=== PATIENT | male | born 1965 | race Caucasian/White ===

== ENCOUNTER 2019-07-08 09:30 | Outpatient (RCR) | payer OTHER, SELFPAY | END 2019-07-08 23:59 | disposition home or self-care (01) | LOC: ANHAUDIO 09:30 | PROVIDERS: PCP Family Medicine | DX: Z46.1 Encounter for fitting and adjustment of hearing aid (principal) | CPT/HCPCS: 99199 ==

== ENCOUNTER 2019-10-02 10:51 | Outpatient (RCR) | payer OTHER, SELFPAY | END 2019-10-02 23:59 | disposition home or self-care (01) | LOC: ANHAUDIO 10:51 | PROVIDERS: PCP Family Medicine; Visit Provider Family Medicine | DX: Z46.1 Encounter for fitting and adjustment of hearing aid (principal) | CPT/HCPCS: 99199 ==

== ENCOUNTER 2020-09-12 08:00 | Outpatient (RCR) | payer OTHER, SELFPAY | END 2020-09-12 23:59 | disposition home or self-care (01) | LOC: ANHAUDIO 08:00 | PROVIDERS: PCP Family Medicine; Visit Provider Family Medicine | DX: Z46.1 Encounter for fitting and adjustment of hearing aid (principal) | CPT/HCPCS: 92592; 99199; V5264 ==

== ENCOUNTER 2020-09-15 17:37 | Emergency (ER) | payer OTHER, SELFPAY ==
--- NOTE | ~2020-09-15 | XR_ITS ---
EXAMINATION: XR foot RT min 3V EXAM DATE: 09/15/2020 18:22 INDICATION: Right foot pain, plantar surface 2nd digit. TECHNIQUE: Right foot dorsoplantar, lateral and oblique projections obtained and reviewed. Compariso n is made to prior examination from 07/28/2013. FINDINGS: Right metatarsal bones unremarkable. There is mild right 1st metatarsophalangeal joint pr imary osteoarthritis. Small inferior calcaneal spur. No periosteal reaction or band of sclerosis to s uggest subacute stress fracture. There are no acute fractures or dislocations identified. There is n o subcutaneous gas. The soft tissue is unremarkable. There are no radiopaque foreign bodies. IMPRESSION: 1. XR foot RT min 3V exam without acute osseous findings. 2. Mild right 1st MTP osteoarthritis. Reviewed, dictated and finalized at location A.
--- NOTE | ~2020-09-15 | XR_ITS ---
EXAMINATION: XR foot LT min 3V EXAM DATE: 09/15/2020 18:22 INDICATION: Left foot pain, plantar surface 2nd digit. TECHNIQUE: Left foot dorsoplantar, lateral and oblique projections obtained and reviewed. Compari son is made to prior examination from 01/17/2016. FINDINGS: No periosteal reaction or band of sclerosis to suggest subacute stress fracture. There are no acute left foot fractures or dislocations identified. There is no subcutaneous gas. The soft tis dana is unremarkable. There are no radiopaque foreign bodies. IMPRESSION: 1. Unremarkable XR foot LT min 3V exam. Reviewed, dictated and finalized at location A.
[2020-09-15 17:50] VITALS: BP 152/96; PULSE 99; RESP 16; TEMP 36.6; O2SAT 97
--- NOTE | 2020-09-15 18:00 | ED.EXTPRO ---
HPI - Extremity Problem General Chief complaint: Extremity Problem,Nontraumatic Stated complaint: bilateral foot pain Time Seen by Provider: 09/15/20 17:40 Source: patient Mode of arrival: ambulatory Limitations: no limitations History of Present Illness HPI Narrative: This is a 55-year-old male that presents to the emergency department for ongoing foot pain over the last month. Reports pain initially started in the right foot, and is now also on the left foot. It is on the plantar surface of the feet around the area of the second and third metatarsals. Pain is worse with palpation of the area and weightbearing. The pain is sharp in nature. He has been alternating Tylenol and ibuprofen for pain. No known injury or trauma. Denies decreased range of motion or numbness. Related Data Home Medications Medication Instructions Recorded Confirmed duloxetine mg PO 09/15/20 temazepam mg 09/15/20 Allergies Allergy/AdvReac Type Severity Reaction Status Date / Time codeine Allergy Unknown Gastrointestinal Verified 09/15/20 18:05 Upset Review of Systems Review of Systems: Narrative: CONSTITUTIONAL: Denies fever MUSCULOSKELETAL: Reports myalgia. NEUROLOGIC: Denies numbness All systems reviewed & are unremarkable except as noted in HPI and below PMFSH Family History Family History (Updated 10/22/13 @ 07:13 by DOCTOR UNKNOWN) Father Family history of congestive heart failure Hypertension Mother Carcinoma of colon Other Family history of colonic diverticulitis Social History Social History (Updated 09/15/20 @ 18:04 by Saba Garcia PA-C) Smoking status: Former smoker Alcohol intake: never Substance use: current Substance use type: marijuana Gender identity (if verbalized by the patient): Male Exam Narrative: Exam Narrative: GENERAL: Well-appearing, well-nourished, and in no acute distress. HEAD: Normocephalic, atraumatic. EYES: EOMI. EXTREMITIES: Normal range of motion. No edema, erythema or warmth. Normal DP pulses. Normal sensation. Tender to palpation of the plantar surface of the foot over the 2nd and 3rd metatarsals bilaterally SKIN: Warm, dry, no rash. NEURO: No focal deficits. Alert and oriented x3. PSYCH: Normal mood and affect Course Vital Signs Vital signs: Vital Signs Temperature 98 F 09/15/20 17:50 Pulse Rate 99 09/15/20 17:50 Respiratory Rate 16 09/15/20 17:50 Blood Pressure 152/96 H 09/15/20 17:50 Pulse Oximetry 97 09/15/20 17:50 Temperature 98 F 09/15/20 17:50 Pulse Rate 99 09/15/20 17:50 Respiratory Rate 16 09/15/20 17:50 Blood Pressure 152/96 H 09/15/20 17:50 Pulse Oximetry 97 09/15/20 17:50 MDM - Extremity (Nontraumatic) MDM Narrative Medical decision making narrative: Patient presents the emergency department for bilateral foot pain. On the plantar surface of the feet around the area of the second and third metatarsals. No recent injuries or trauma. Patient is neurovascularly intact. Does report he started a new job where he has to climb up and down a ladder a lot. Bilateral foot x-rays are without acute osseous abnormalities. Patient updated on case findings. Instructed to buy some inserts that will pad the metatarsal areas of his feet. He is to follow-up with the gunner's mate g. He was given warnings to return to the ER Imaging Data Radiologist's impression: ITS Impressions Foot X-Ray 09/15/20 18:32 IMPRESSION: 1. Unremarkable XR foot LT min 3V exam. Foot X-Ray 09/15/20 18:35 IMPRESSION: 1. XR foot RT min 3V exam without acute osseous findings. 2. Mild right 1st MTP osteoarthritis. Critical Care Time Critical Care Time Critical Care Time: No Discharge Plan Discharge Clinical Impression: Metatarsalgia of both feet Patient Disposition: Home, Self-Care Condition: Stable Instructions: Metatarsalgia (DC) Additional Instructions: Return to the emergency department if y
[2020-09-15] MEDS: KETOROLAC (*BKC) 60 MG/2 ML VIAL IM (18:08)
== END 2020-09-15 19:10 | disposition home or self-care (01) ==
PROVIDERS: Emergency Provider Emergency Medicine; PCP Family Medicine
DX: M79.672 Pain in left foot (principal); M79.671 Pain in right foot; Z87.891 Personal history of nicotine dependence; M19.071 Primary osteoarthritis, right ankle and foot
CPT/HCPCS: 73630; 96372; 99284; J1885

== ENCOUNTER 2020-11-07 16:43 | Outpatient (CLI) | payer OTHER, SELFPAY ==
--- NOTE | ~2020-11-07 | XR_ITS ---
XR hand RT min 3V DATE: 11/07/2020 17:01 INDICATION: Right hand pain TECHNIQUE: 3 views COMPARISON: None FINDINGS: There is periarticular osteophyte is at the minimally to the first carpometacarpal joint, a lso interphalangeal joints. No fracture or dislocation, periosteal reaction or bone destruction. IMPRESSION: Polyarticular osteoarthritis, involving particularly the first carpometacarpal joint Reviewed, dictated and finalized at location A. IMPRESSION: Polyarticular osteoarthritis, involving particularly the first carp ometacarpal joint
== END 2020-11-07 16:44 | disposition home or self-care (01) ==
LOC: ANHIMG 16:47
PROVIDERS: PCP Family Medicine; Visit Provider Physician Assistant Medical
DX: M19.041 Primary osteoarthritis, right hand (principal)
CPT/HCPCS: 73130

== ENCOUNTER 2021-04-04 15:17 | Outpatient (CLI) | payer OTHER, SELFPAY ==
--- NOTE | ~2021-04-04 | XR_ITS ---
XR shoulder RT min 2V DATE: 04/04/2021 15:45 INDICATION: Right shoulder injury, pain TECHNIQUE: 4 views COMPARISON: None FINDINGS: No fracture or dislocation, periosteal reaction or bone destruction or abnormal soft tissue calcification. IMPRESSION: No significant abnormality Reviewed, dictated and finalized at location A. APPLICATIONS ARCHITECT IMPRESSION: No significant abnormality
--- NOTE | ~2021-04-04 | XR_ITS ---
XR cervical spine min 6V DATE: 04/04/2021 15:45 INDICATION: Neck pain TECHNIQUE: AP, open-mouth, lateral and bilateral oblique views COMPARISON: None FINDINGS: The cervical vertebrae are normally aligned. C1 and C2 are normally aligned and the odontoi d process is intact. No fracture or dislocation or locked facet or prevertebral soft tissue swelling. There is mild anterior spurring in the mid and lower cervical spine. Cervical interspaces are relativ carolyn well preserved. No significant bony encroachment upon the neural foramina. IMPRESSION: Mild degenerative change Reviewed, dictated and finalized at location A. RVISOR PHOTOSTAT IMPRESSION: Mild degenerative change
== END 2021-04-04 15:18 | disposition home or self-care (01) ==
PROVIDERS: PCP Family Medicine; Visit Provider Family Medicine
DX: M54.2 Cervicalgia (principal); S49.91XA Unspecified injury of right shoulder and upper arm, initial encounter; X58.XXXA Exposure to other specified factors, initial encounter
CPT/HCPCS: 72052; 73030

== ENCOUNTER 2021-05-12 07:55 | Outpatient (CLI) | payer OTHER, SELFPAY ==
--- NOTE | 2021-05-12 08:00 | ECG_ITS ---
Measurements Intervals [place] Rate: 84 P: 58 WI: 181 QRS: -26 QRSD: 107 T: 68 QT: 352 QTc: 416 Interpretive Statements SINUS RHYTHM WITH SINUS ARRHYTHMIA MOTION ARTIFACT MAKES INTERPRETATION DIFFICULT LEFT AXIS DEVIATION [QRS AXIS < -20] NONSPECIFIC T-WAVE ABNORMALITY NO PREVIOUS ECG AVAILABLE FOR COMPARISON Electronically Signed On 05-12-2021 16:06:07 CDT by Mariano Pineda M.D.
== END 2021-05-12 07:56 | disposition home or self-care (01) ==
LOC: ANHSURGERY 08:00
PROVIDERS: PCP Family Medicine; Visit Provider Plastic Surgery
DX: Z87.891 Personal history of nicotine dependence (principal)
CPT/HCPCS: 93005

== ENCOUNTER 2021-05-18 01:20 | Day surgery (SDC) | payer OTHER, SELFPAY ==
[2021-05-10 11:14] VITALS: BMI 34.0
--- NOTE | 2021-05-10 11:26 | PC.NURSE ---
Report to the Outpatient Waiting Room, entrance under the green pavilion located off [facility], at time 7:30 on date 05/18/21. OR Time: 9:30. - You and your visitor will be asked a series of questions to screen for COVID 19 for your protection. - A mask is required within the hospital. One visitor will be allowed to accompany the patient into the hospital. Patients visitor will be instructed to remain with patient at all times or leave the building. We will allow the visitor to come back to the postoperative area when patient is ready. Preoperative COVID Testing Requirements: No COVID Test needed if: (proof is required; if not received patient will have Rapid Test prior to entry) - Patient has received COVID Vaccine at least 14 days prior to procedure date or - Patient has positive COVID test result within last 90 days of surgery date. COVID Test needed if above criteria is not met Patients may have clear liquids (water, carbonated beverages, clear teas, apple juice) until 3 hours prior to surgery (6:30) with a maximum of 20 ounces. - No food from midnight until time of surgery Take the following medications with a SIP of water the morning of surgery: CYCLOBENZAPRINE, GABAPENTIN Medications to discontinue per physician: N/A Date to take last dose: N/A Please no make-up, nail british, hairspray, perfume, deodorant, or body powder the day of surgery. No jewelry (including any body piercings) or valuables the day of surgery, leave them at home. Please take a shower or bath the night before, or the morning of, surgery with an antibacterial soap. Wear comfortable, loose fitting clothing. - Jewelry must be removed prior to entering the operating room. Rings and piercings that are not removed may be cut off. - The hospital will not accept responsibility for valuables. - Please leave all valuables, including medications, at home the day of surgery. If you are going home after surgery, a licensed mobile lounge driver must drive you home. - NO public transportation without another adult. - We recommend that an adult stay with you for 24 hours following discharge. - We also recommend that you do not drive, make important decision, drink alcoholic beverages, or take any drugs that were not prescribed by your health care provider for at least 24 hours after your discharge time. Follow any additional instructions given to you from your surgeon. Telephone instructions given to LUPILLO TORRES and asked if any additional questions and then verbalized understanding. Patient advised to call surgeon office or pre surgery nurse liaison [phone] if any additional questions.
[2021-05-18] VITALS (8 sets, daily range): BP systolic 150–176; BP diastolic 85–98; PULSE 48–61; RESP 12–16; TEMP 36–36.5; O2SAT 98–100
--- NOTE | ~2021-05-18 | XR_ITS ---
EXAMINATION: XR surgery orthopedic DATE: 05/18/2021 11:26 INDICATION: Right thumb arthroplasty TECHNIQUE: 3 fluoroscopic images of the right carpus were obtained during procedure performed by Dr. Ramos. Radiologist was not present for the imaging or procedure. The amount of fluoroscopy time used during this procedure was 0.1 minutes. COMPARISON: 11/07/2020 FINDINGS: Interval resection of the trapezium with expected postoperative gas at the resection bed. On the init ial image the thumb is slightly distracted and the tip of a metallic pin projects over the radial bas e of the second metatarsal likely marking a fixation site. On the final image the retraction of the f irst metacarpal has been released with the base of the first metacarpal settling partially into the r esection bed. IMPRESSION: 1. Expected appearance during first carpal metacarpal suspension arthroplasty with resection of the t rapezium. Reviewed, dictated and finalized at location A. IMPRESSION: 1. Expected appearance during first carpal metacarpal suspension arthroplasty w ith resection of the trapezium.
--- NOTE | 2021-05-18 06:19 | P.PNAN_ITS ---
Anes - Initial Pre Proc Eval Procedure: Operation Date: 05/18/21 09:30 Proposed Procedures p Right Trapezium Resection Arthroplasty with Arthrex Internal Brace - Terry Ramos MD Date/Time: 05/18/21 06:19 Surgeon: Terry Ramos MD Pre Op Diagnosis: right 1st carpometacarpal joint OA Patient Data Age: 55 Gender: M Height: 1.75 m Weight: 104.33 kg Allergies Allergy/AdvReac Type Severity Reaction Status Date / Time codeine Allergy Mild Gastrointestinal Verified 05/18/21 07:53 Upset Home Medications Medication Instructions Recorded Confirmed Type temazepam 30 mg capsule 30 mg PO .hs #30 cap 03/23/21 05/18/21 Rx ibuprofen 800 mg tablet 800 mg PO TID #60 tablet 04/20/21 05/18/21 Rx duloxetine 60 mg PO HS 05/10/21 05/18/21 History gabapentin 100 mg capsule 100 mg PO BID #60 cap 05/14/21 05/18/21 Rx meloxicam 15 mg PO DAILY 05/18/21 05/18/21 History Patient hx anesthesia problems: none Family hx anesthesia problems: none Results Review: All pre-operative results and documents have been reviewed as part of the pre-operative evaluation. [facility]LY [facility] Past Medical History Medical History (Updated 05/18/21 @ 06:19 by Clyde Cary DO) BMI 31.0-31.9,adult BMI 32.0-32.9,adult Diverticulosis IBS (irritable bowel syndrome) Neck pain Family History Family History Father Family history of congestive heart failure Hypertension Mother Carcinoma of colon Father CHF (congestive heart failure) Cancer of jaw Mother Cancer Sibling Brain aneurysm Sibling , stomach cancer No problems noted. 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 Informed Consent: The patient's anesthetic plan and its attendant risks and benefits were discussed with the patient/family/POA. Questions were solicited and answers provided to the satisfaction of the patient/family/POA.
[2021-05-18] MEDS: ACETAMINOPHEN 500 MG TABLET 1000 MG PO (08:03)
[2021-05-18] MEDS: LACTATED RINGERS 1,000 ML 30 ML IV CONT ×2 (08:10→10:51)
[2021-05-18] MEDS: KETOROLAC 15 MG/ML VIAL (*BKC) IV PUSH (08:13)
--- NOTE | 2021-05-18 09:05 | WPDHPUPDATE1 ---
History and Physical Update Update Date/Time: 05/18/21 09:05 History and Physical has been reviewed, including an updated exam of the patient. There are NO changes in the patient's condition. Risks, benefits, and alternatives have been discussed and questions answered. Patient agrees to proceed with procedure.
[2021-05-18] MEDS: ceFAZolin 2 GM/D5W 50 ML 2 GM/50 ML BAG IVPB (09:11)
[2021-05-18] MEDS: BUPIVACAINE HCL 0.5% PF 30 ML VIAL INFILTRATE (10:31)
--- NOTE | 2021-05-18 11:30 | SUR.PHASEI ---
DR MOCTEZUMA AWARE OF BP 151/100 & 176/95, HR 51- NO ORDERS TO TREAT AT THIS TIME. INSTRUCT PT TO FOLLOW WITH PCP.
--- NOTE | 2021-05-18 15:32 | W.PM.PROC2 ---
Procedure Note - Detailed Date of Procedure 05/18/21 Pre-op Diagnosis right 1st carpometacarpal joint OA Post-op Diagnosis Same Procedure Performed Right trapezium resection arthroplasty with Arthrex internal brace Surgeon Terry Ramos MD Customer Resolution Specialist [place] Anesthesia General Description of Procedure The right radial wrist area was marked on the patient as he waited in the holding area. Was taken to the operating room and placed supine on the operating table. The right upper extremity was prepped over the hand table. A a time-out was held confirmed. The site was marked for the incision to include the existing scar. This area was infiltrated with 1% lidocaine with epinephrine. The extremity was exsanguinated and the tourniquet inflated 250 mmHg. The incision was made as marked on the radial aspect of the thumb centered on the basal joint. Dissection was carried through the subcutaneous tissue. A 3 mm cutaneous nerve was identified and kept out of harm's way. The interspace between the EPB and the APL was incised and dissected subperiosteally to expose the base of the metacarpal and trapezium. The trapezium was dissected around its periphery with a knife or Kolby lynnette and the trapezium was removed with a rongeur and or a McGlamry elevator. The superficial branch of the radial artery was identified and preserved. Images were made to confirm the removal of the entire trapezium. The radial facet at the base of the 2nd metacarpal was identified and a C-wire past into that. Site was imaged and the drill was placed over the guidewire and the drill hole made. The wire was removed and the Arthrex SwiveLock was placed over SutureTape to seat the 2nd metacarpal end of the suspension plasty. The radial base of the 1st metacarpal was freed of ligamentous tissue and the similar anchor was placed there to complete the suspension plasty. The construct was imaged with the thumb distracted and depressed to the limits of the suture tape. Capsular material that could be reposition was repaired with 3-0 Vicryl suture. The tourniquet was released and the skin was closed with the running intradermal 4-0 Monocryl suture. 8 milliliter of 0.5% plain Marcaine were injected appropriately near the wound area. A soft bandage and thumb spica Ortho Glass splint were applied. the patient was discharged from the operating room in stable condition. He has a prescription for hydrocodone 5/325 7. Was prescribed he had been given 2 g Ancef preop along with 1000 mg of Tylenol and 15 mg of IV Toradol. Tourniquet Time 60 Drains No Packing No Pathology None sent Complications No immediate complications Condition Stable Disposition PACU
== END 2021-05-18 12:41 | disposition home or self-care (01) ==
PROVIDERS: PCP Family Medicine; Visit Provider Plastic Surgery
PROC: (CPT 25447; principal; 2021-05-18 09:30)
DX: M18.11 Unilateral primary osteoarthritis of first carpometacarpal joint, right hand (principal); Z87.891 Personal history of nicotine dependence; F12.90 Cannabis use, unspecified, uncomplicated; E66.9 Obesity, unspecified; Z68.32 Body mass index [BMI] 32.0-32.9, adult
CPT/HCPCS: 25447; A9270; C1713; J0690; J1100; J1885; J2405; J2704; J3010; J7120

== ENCOUNTER 2021-06-30 10:00 | Outpatient (RCR) | payer OTHER, SELFPAY ==
--- NOTE | 2021-05-31 09:28 | OTOPEVAL ---
OCCUPATIONAL THERAPY EVALUATION REPORT 05/31/21 Ming is a 56 year-old, left handed male who is 2 weeks s/p right thumb CMC arthroplasty with Arthrex Internal Brace. Today a well fitting, removable, thermoplastic long thumb spica brace was fabricated to allow for regular removal for ROM and for continued protection until week 4 post op. He was also issued active ROM HEP. He demonstrates excellent understanding of all materials. Continued skilled OT indicated for HEP progression, modalities, manual therapy, and splint weaning schedule to facilitate optimal functional use of his right hand. Thank you for referring Ming Bowlesmarifer Velazco. to [facility].? The patient is scheduled to be seen for therapy? 1x/week for4 weeks. Please review, sign, date and return this plan of care HARRIETT. I agree with and certify that the following plan of care is medically necessary. Referring Physician Date Referring Provider: Terry Ramos MD *OT Outpatient Evaluation Start: 05/31/21 08:18 Outpatient Past Medical History Past Medical History Source of Past Medical History Recalled from Previous Visit, Confirmed with Patient/Family Neurological History Hx Neurological Disorders No Significant History Cardiovascular History Hx Cardiac Disorders No Significant History Respiratory History Hx Respiratory Disorders No Significant History Gastrointestinal History Hx Diverticulosis Yes Hx Irritable Bowel Yes Genitourinary History Hx Genitourinary Disorders No Significant History Musculoskeletal History Hx Arthritis Yes Hx Orthopedic Surgery Yes: LT HAND TRIGGER FINGER RELEASE, CARPAL AND CUBITAL TUNNEL RELEASE, LT RCR Hx Other Musculoskeletal Disorders Yes: GANGLION CYST REMOVED Hematological History Hx Hematological Disorders No Significant History Endocrine History Hx Endocrine Disorders No Significant History HEENT History Hx Sinus Problems Yes Hx Deviated Septum Yes: NOSE BROKEN CHILD Hx Other HEENT Disorders Yes: BILAT LAZY EYE Integumentary History Hx Skin Disorders No Significant History Reproductive History Hx Reproductive Disorders No Significant History Psychosocial History Hx Anxiety Yes: SITUATIONAL Pain History History of Any Previous or Ongoing No Significant History Instance of Pain Anesthesia History Hx Anesthesia Reactions No Significant History Evaluation Information Problem Diagnosis s/p right trapezium resection with Internal Brace Onset 05/18/21 Cause 1st CMC OA Subjective Information Patient reports he is off work Query Text:As Reported By Patient/ x6 weeks. States he has been Family doing everything one handed since surgery. Prior Level of Function Activity Level (Last 3 Months) Occupation
--- NOTE | 2021-06-09 10:59 | PCOTNOTE ---
Patient did not show up for scheduled appointment this date. Called patient who stated he thought his appointment was at 1:30 today.
--- NOTE | 2021-06-30 10:46 | OTOPEVAL ---
OCCUPATIONAL THERAPY RE-EVALUATION REPORT AND DISCHARGE SUMMARY 06/30/21 Patient presents today, 6 weeks following right thumb CMC arthroplasty. He has been excellent with HEP compliance and has progressed very well. Today he presents with no functional limitations, just reports of some residual soreness at times. Measurements show ROM has returned to normal limits, with the exception of the MCP joint of the thumb for which he is continuing with his HEP for that. He was progressed to strengthening for the wrist, mud analysis supervisor, and pinch and demonstrates excellent understanding of all the exercises. No further skilled OT indicated at this time. Thank you for referring Ming Nieves Sr. to [facility]. Please review, sign, date and return this D/C Note HARRIETT. I agree with and certify that the following plan of care is medically necessary. Referring Physician Date Referring Provider: Terry Ramos MD Re-Evaluation Information Problem Diagnosis s/p right trapezium resection with Internal Brace Onset 05/18/21 Cause 1st CMC OA Subjective Information Patient reports he has no Query Text:As Reported By Patient/ functional limitations at this Family time. He reports some residual, intermittent soreness at the surgical site. Pain Assessment Timing of Pain Assessment Timing of Pain Assessment Assessment Pain Scale Pain Scale Used Numeric (1 - 10) Self Report Pain Assessment Right Hand(s) Reported Pain Level 0 Lowest Pain Intensity 0 Greatest Pain Intensity 4 Pain Score Pain Score 0: Self Report Upper Extremity Range of Motion Elbow/Forearm Range of Motion Right Forearm Supination - Active 90 Forearm Pronation - Active 90 Elbow/Forearm Range of Motion Comments Supination improved from 80* Pronation improved from 85* Wrist Range of Motion Right Wrist Flexion - Active 75 Wrist Extension - Active 65 Wrist Radial Deviation - Active 25 Wrist Ulnar Deviation - Active 35 Wrist Range of Motion Comments Flexion improved from 70* Extension improved from 50* RD improved from 15* UD improved from 25* Finger Range of Motion Right Reason Not Measured WNL/Right Thumb Range of Motion Right Thumb MCP Flexion - Active 30 Thumb MCP Flexion - Passive 45 Thumb IP Flexion - Active 80 Thumb CMC Radial Abduction - Active 60 Thumb CMC Palmar Abduction - Active 60 Opposition to 5th Digit Base 0 cm. gap Thumb Range of Motion Comments MCP flex improved from 15* IP flex improved from 55* CMC radial abd improved from 45* CMC palmar abd improved from 55*
== END 2021-07-03 09:08 | disposition home or self-care (01) ==
LOC: ANHOT 10:00
PROVIDERS: PCP Family Medicine; Visit Provider Plastic Surgery
DX: Z48.89 Encounter for other specified surgical aftercare (principal)
CPT/HCPCS: 97110; 97165; L3806

== ENCOUNTER 2021-06-30 13:58 | Outpatient (RCR) | payer OTHER, SELFPAY | END 2021-06-30 23:59 | disposition home or self-care (01) | LOC: ANHAUDIO 13:58 | PROVIDERS: PCP Family Medicine; Referring Provider Physician Assistant Medical; Visit Provider Physician Assistant Medical | DX: Z46.1 Encounter for fitting and adjustment of hearing aid (principal); H91.90 Unspecified hearing loss, unspecified ear; Z71.89 Other specified counseling | CPT/HCPCS: 99199 ==

== ENCOUNTER 2021-07-10 16:19 | Outpatient (CLI) | payer OTHER, SELFPAY ==
[2021-07-10 16:42] LABS: Anion Gap 4 mmol/L (8-16); Blood Urea Nitrogen 21 mg/dL (9-20); Calcium 8.5 mg/dL (8.4-10.2); Carbon Dioxide 25 mmol/L (22-30); Chloride 109 mmol/L (98-107); Creatine Kinase 106 U/L (55-170); Estimated Glomerular Filt Rate > 60; Glucose 97 mg/dL (65-110); Potassium 4.1 mmol/L (3.4-5.0); Sodium 138 mmol/L (137-145)
== END 2021-07-10 16:20 | disposition home or self-care (01) ==
LOC: ANHLAB 16:20
PROVIDERS: PCP Family Medicine; Visit Provider Nurse Practitioner Family
DX: T67.01XA Heatstroke and sunstroke, initial encounter (principal)
CPT/HCPCS: 36415; 80048; 82550

== ENCOUNTER 2022-04-20 14:27 | Emergency (ER) | payer OTHER, SELFPAY ==
--- NOTE | ~2022-04-20 | XR_ITS ---
EXAMINATION: XR chest 2V 04/20/2022 15:11 INDICATION: Chest pain PROCEDURE: 2 view chest COMPARISON: 08/24/2018 FINDINGS: The lungs are clear. Shallow inspiration with crowding of the pulmonary vessels. The cardio mediastinal silhouette is enlarged. There are no pleural effusions. There is no pneumothorax suspect ed. IMPRESSION: 1: NO ACUTE CARDIOPULMONARY DISEASE. Reviewed, dictated and finalized at location B. ING TECHNICIAN
--- NOTE | 2022-04-20 14:28 | ECG_ITS ---
Measurements Intervals [place] Rate: 65 P: 32 WI: 178 QRS: -30 QRSD: 106 T: 56 QT: 433 QTc: 452 Interpretive Statements SINUS RHYTHM LEFT AXIS DEVIATION [QRS AXIS < -20] NONSPECIFIC T-WAVE ABNORMALITY COMPARED TO ECG 05/12/2021 08:12:41 NO SIGNIFICANT CHANGES Electronically Signed On 04-20-2022 15:42:14 CABIN EQUIPMENT SUPERVISOR by Mariano Pineda M.D.
[2022-04-20 14:32] VITALS: BP 156/85; PULSE 72; RESP 16; TEMP 36.6; O2SAT 100
[2022-04-20 14:48] LABS: Basophils Absolute Auto 0.1 K/mm3 (0.0-0.1); Eosinophils Absolute Auto 0.2 K/mm3 (0-0.3); Eosinophils Percent Auto 2.1 % (0-4.4); Hematocrit 45.8 % (42.0-52.0); Hemoglobin 15.8 g/dL (14.0-18.0); Immature Granulocyte Absolute 0.04 K/mm3 (0.00-0.031); Immature Granulocyte Percent A 0.5 % (0-0.5); Lymphocytes Absolute Auto 1.35 K/mm3 (0.9-3.2); Lymphocytes Percent Auto 15.6 % (18.3-44.2); Mean Corpuscular HGB Conc 34.5 g/dl (32-36); Mean Corpuscular Hemoglobin 31.5 pg (26-34); Mean Corpuscular Volume 91.4 fl (80-100); Mean Platelet Volume 8.8 fl (7.4-10.4); Monocytes Absolute Auto 0.7 K/mm3 (0.1-0.6); Monocytes Percent Auto 7.5 % (2.6-8.5); Neutrophils Absolute Auto 6.3 K/mm3 (1.3-6.7); Neutrophils Percent Auto 73.3 % (45.5-73.1); Platelet Count Result 276 k/mm3 (150-375); Red Blood Count 5.01 M/mm3 (4.6-6.20); Red Cell Distribution Width 13.1 % (11.5-14.5); White Blood Count 8.6 K/mm3 (4.5-10.0)
[2022-04-20 15:00] LABS: Alanine Aminotransferase 22 U/L (6-50); Albumin Level 4.7 g/dL (3.5-5.1); Alkaline Phosphatase 73 U/L (38-126); Anion Gap 5 mmol/L (8-16); Aspartate Amino Transferase 22 U/L (17-59); Bilirubin,Total 0.8 mg/dL (0.2-1.3); Blood Urea Nitrogen 22 mg/dL (9-20); Calcium 8.7 mg/dL (8.4-10.2); Carbon Dioxide 27 mmol/L (22-30); Chloride 104 mmol/L (98-107); Estimated CRCL calculation 103 ml/min; Estimated Glomerular Filt Rate > 60; Glucose 90 mg/dL (65-110); INR 1.1; Lipase 101 U/L (23-300); Potassium 3.8 mmol/L (3.4-5.0); Prothrombin Time 13.3 Seconds (11.1-14.7); Sodium 136 mmol/L (137-145)
[2022-04-20 15:01] LABS: Partial Thromboplastin Time 26.2 SECONDS (22.3-36.8)
[2022-04-20 15:11] LABS: Troponin I < 0.012 ng/mL (0.000-0.034)
== END 2022-04-20 17:43 | disposition left against medical advice (07) ==
LOC: ANHED 17:52
PROVIDERS: Emergency Provider Emergency Medicine; PCP Family Medicine
DX: R07.89 Other chest pain (principal)
CPT/HCPCS: 36415; 71046; 80053; 83690; 84484; 85025; 85610; 85730; 93005; 99199

== ENCOUNTER 2022-05-10 07:56 | Outpatient (CLI) | payer OTHER, SELFPAY ==
--- NOTE | 2022-05-10 08:11 | EST_ITS ---
Patient Info Name: Ming Nieves Age: 56 years : 1965 Gender: Male Ht: 69 in Wt: 225 lbs BSA: 2.26 m2 HR: 57 bpm BP: 125 / 91 mmHg Heart Rhythm: Sinus Rhythm Exam Date: 05/10/2022 8:38 AM Exam Location: [facility] Stress Patient Status: Outpatient Admit Date: 05/10/2022 Staff Ordering Physician: Sylwia Granados Attending Provider: Sylwia Granados Exercise Technologist: Kristen Day RDCS Exercise Physician: Yohan Rodriguez DO Exam Type: CA stress test treadmill Study Info Indications R07.9 - Chest pain, unspecified - HYPERTENSION A treadmill exercise stress test was performed. Summary 1. A treadmill exercise stress test was performed. 2. 1. Negative Chung exercise stress test for ischemic ST changes by ECG criteria. 3. 2. Reduced functional capacity, achieving 7 METs of workload. 4. 3. Baseline hypertension. 5. 4. Appropriate HR response to exercise. 6. 5. Appropriate HR recovery at 1 minute post exercise. 7. 6. No imaging with stress testing. 8. 7. Patient informed of the above results. Protocol: Chung Rest HR: 57 bpm Peak HR: 149 bpm Rest Sys BP: 125 mmHg Peak Sys BP: 210 mmHg Max Pred HR: 162 bpm % Max Pred HR: 92 % Target HR: 138 bpm Max RPP: 31,290 bpm*mmHg Termination Reason: Reached target heart rate or workload Cardiac Symptoms: Shortness of breath Max ST Seg Deviation: 1.20 mm Total Time: 5 min : 0 sec Rest Dewey BP: 91 mmHg Peak Dewey BP: 90 mmHg Total METS: 7.1 Resting ECG Sinus rhythm, IRBBB. Stress ECG No ST changes. Arrhythmias None. Report Signatures
== END 2022-05-10 07:57 | disposition home or self-care (01) ==
PROVIDERS: PCP Family Medicine; Visit Provider Nurse Practitioner Family
DX: R07.9 Chest pain, unspecified (principal); I10 Essential (primary) hypertension
CPT/HCPCS: 93017

== ENCOUNTER 2022-07-30 09:03 | Outpatient (CLI) | payer OTHER, SELFPAY ==
[2022-07-30 09:21] LABS: Hematocrit 46.2 % (42.0-52.0); Hemoglobin 15.6 g/dL (14.0-18.0); Mean Corpuscular HGB Conc 33.8 g/dl (32-36); Mean Corpuscular Volume 91.8 fl (80-100); Mean Platelet Volume 8.5 fl (7.4-10.4); Platelet Count Result 285 k/mm3 (150-375); Red Blood Count 5.03 M/mm3 (4.6-6.20); Red Cell Distribution Width 12.5 % (11.5-14.5); White Blood Count 6.7 K/mm3 (4.5-10.0)
[2022-07-30 09:33] LABS: Alanine Aminotransferase 27 U/L (6-50); Albumin Level 4.4 g/dL (3.5-5.1); Alkaline Phosphatase 71 U/L (38-126); Anion Gap 6 mmol/L (8-16); Aspartate Amino Transferase 24 U/L (17-59); Bilirubin,Total 0.5 mg/dL (0.2-1.3); Blood Urea Nitrogen 23 mg/dL (9-20); Calcium 8.9 mg/dL (8.4-10.2); Carbon Dioxide 25 mmol/L (22-30); Chloride 105 mmol/L (98-107); Cholesterol 229 mg/dL (0-200); Estimated Glomerular Filt Rate > 60; Glucose 101 mg/dL (65-110); HDL Direct 35 mg/dL; Magnesium 2.2 mg/dL (1.6-2.3); Potassium 4.3 mmol/L (3.4-5.0); Sodium 136 mmol/L (137-145); Triglycerides 220 mg/dL (<150)
[2022-07-30 09:44] LABS: LDL Cholesterol Direct 146 mg/dL
[2022-07-30 10:03] LABS: Prostate Specific Antigen 0.9 ng/mL (< OR = 4.0)
== END 2022-07-30 09:04 | disposition home or self-care (01) ==
LOC: ANHLAB 09:04
PROVIDERS: PCP Family Medicine; Visit Provider Nurse Practitioner Family
DX: I10 Essential (primary) hypertension (principal); Z12.5 Encounter for screening for malignant neoplasm of prostate
CPT/HCPCS: 36415; 80053; 80061; 83735; 84153; 84443; 85027; G0103

== ENCOUNTER 2023-01-09 08:42 | Emergency (ER) | payer OTHER, SELFPAY ==
--- NOTE | ~2023-01-09 | XR_ITS ---
XR finger 1st RT min 2V DATE: 01/09/2023 09:08 INDICATION: Crush injury of right thumb TECHNIQUE: 3 views COMPARISON: 11/07/2020 right hand FINDINGS: There is interval resection of the trapezium, with at least several corticated bone densiti es remaining at the former trapezium site. Osteoarthritic change is noted at the base of the first me tacarpal bone. There is osteoarthritis spurring at the interphalangeal joint of the first digit. No recent fracture or dislocation of the first digit is detected. No periosteal reaction or bone dest ruction. No radiopaque soft tissue foreign body or subcutaneous emphysema. IMPRESSION: No recent fracture Status post trapezium resection since 11/07/2020 Reviewed, dictated and finalized at location B. 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
[2023-01-09 08:58] VITALS: BP 126/96; PULSE 79; RESP 16; TEMP 37.2; O2SAT 100
--- NOTE | 2023-01-09 09:03 | ED.UPPEXIN ---
HPI - Extremity Injury (Upper) General Chief Complaint: Extremity Injury, Upper Stated Complaint: Right Thumb Injury Time Seen by Provider: 01/09/23 09:00 Source: patient and RN notes reviewed Mode of arrival: ambulatory Limitations: no limitations History of Present Illness HPI narrative: Patient presents today complaining of an injury to his right thumb just prior to arrival. Patient works at [employer] in states his finger got pinned between 2 pieces of plywood, then a metal beam came down and crushed his finger. Currently rates his pain 8/10, and does report some numbness and tingling to the finger as well. Pain increases with movement and touching the area. Related Data Allergies Allergy/AdvReac Type Severity Reaction Status Date / Time codeine Allergy Mild Gastrointestinal Verified 01/09/23 09:09 Upset Review of Systems Review of Systems: CONSTITUTIONAL: Denies body aches, fever, chills, or sweats. EYES: Denies visual changes, redness, or discharge. ENT: Denies rhinorrhea, congestion, sore throat, or otalgia. CARDIOVASCULAR: Denies chest pain, palpitations, or edema. RESPIRATORY: Denies cough or dyspnea. GASTROINTESTINAL: Denies abdominal pain, nausea, vomiting, or diarrhea. GENITOURINARY: Denies dysuria or hematuria. SKIN: Denies rash, itching, or wounds. MUSCULOSKELETAL: + right thumb injury NEUROLOGIC: Denies headache, or weakness. PSYCH: Denies depression or anxiety. [facility] Past Medical History Medical History Acute pain of left knee Caldera's esophagus with dysplasia, unspecified BMI 31.0-31.9,adult BMI 32.0-32.9,adult BMI greater than 30 Chronic pain Dietary counseling and surveillance (09/01/18) Diverticulosis Diverticulosis of intestine, part unspecified, without perforation or abscess with bleeding Dysfunction of both eustachian tubes Elevated blood pressure reading Encounter for screening for lipoid disorders Encounter for screening for malignant neoplasm of colon Encounter for screening for malignant neoplasm of prostate Finger pain, left Foot pain, left Hepatic steatosis Hydrocele of testis IBS (irritable bowel syndrome) Kidney cysts Kidney stone Mallet finger of left finger(s) Marijuana use Neck pain Patellar tendonitis Pelvic pain in male Personal history of urinary calculi Prepatellar bursitis Prostate calculus Right knee pain Screening for lipid disorders Screening for prostate cancer Splinter in skin Thrombosed external hemorrhoid 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 Trigger index finger of left hand Surgical History Surgical History H/O thumb surgery History of extraction of renal calculus Family History Family History Father Family history of congestive heart failure Hypertension Cancer of jaw CHF (congestive heart failure) Mother Carcinoma of colon Sibling Brain aneurysm Stomach cancer Sibling , stomach cancer Breast cancer Other Family history of colonic diverticulitis Social History Social History Smoking packs per day: 2 Smoking cigarettes per day: 40.0 Years smoked: 20 Smoking pack-years: 40.00 Smoking status: Former smoker Tobacco type: cigarettes Smokeless tobacco user: other Second hand tobacco smoke exposure: Yes Smoking end date: 02/25/11 Alcohol intake: current Substance use: current Substance use type: marijuana Other substance usage details: medical Lack of Transportation: No Lack of Food: Never True Current Housing: I Have Housing Concerned About Future Housing: No Difficulty Paying Gas/Electric Bills: No Difficulty Paying for Meds: No Currently Unemployed: No
== END 2023-01-09 10:12 | disposition home or self-care (01) ==
PROVIDERS: Emergency Provider Nurse Practitioner; PCP Family Medicine
DX: S60.011A Contusion of right thumb without damage to nail, initial encounter (principal); Z87.891 Personal history of nicotine dependence; W23.0XXA Caught, crushed, jammed, or pinched between moving objects, initial encounter; Y92.512 Supermarket, store or market as the place of occurrence of the external cause; Y99.0 Civilian activity done for income or pay
CPT/HCPCS: 29130; 73140; 99213; G0463

== ENCOUNTER 2023-02-23 10:59 | Emergency (ER) | payer SELFPAY ==
[2023-02-23 11:04] VITALS: BP 134/84; PULSE 76; RESP 18; TEMP 36.6; O2SAT 98
[2023-02-23] MEDS: HYDROGEN PEROXIDE 3% SOLN(*SP) 473 ML BOTTLE (12:45)
--- NOTE | 2023-02-23 12:55 | PC.NURSE ---
Bilateral ears irrigated with 1/2 warm water & 1/2 hydrogen peroxide. Pt tolerated well. Large amount of ear wax removed. Pt voices improvement in left ear pain after irrigation
--- NOTE | 2023-02-23 13:28 | ED.EAR ---
HPI - Ear Problem General Chief complaint: Ear Stated complaint: left earache Time Seen by Provider: 02/23/23 12:21 History of Present Illness HPI Narrative: Patient is a 57-year-old male presenting ear pain. States that he lost most of his hearing in this ear about 5 years ago. At that time, the ear doctor told him to stop using Q-tips. States that he had a cold several weeks ago. Since that time he has had worsening pressure in his left ear. He is concerned there is something wrong with his eardrum. No further complaints or concerns. Related Data Allergies Allergy/AdvReac Type Severity Reaction Status Date / Time codeine Allergy Mild Gastrointestinal Verified 02/23/23 11:01 Upset Review of Systems Review of Systems: All systems reviewed & are unremarkable except as noted in HPI and below PMFSH Past Medical History Medical History Acute pain of left knee Caldera's esophagus with dysplasia, unspecified BMI 31.0-31.9,adult BMI 32.0-32.9,adult BMI greater than 30 Chronic pain Dietary counseling and surveillance (09/01/18) Diverticulosis Diverticulosis of intestine, part unspecified, without perforation or abscess with bleeding Dysfunction of both eustachian tubes Elevated blood pressure reading Encounter for screening for lipoid disorders Encounter for screening for malignant neoplasm of colon Encounter for screening for malignant neoplasm of prostate Finger pain, left Foot pain, left Hepatic steatosis Hydrocele of testis IBS (irritable bowel syndrome) Kidney cysts Kidney stone Mallet finger of left finger(s) Marijuana use Neck pain Patellar tendonitis Pelvic pain in male Personal history of urinary calculi Prepatellar bursitis Prostate calculus Right knee pain Screening for lipid disorders Screening for prostate cancer Splinter in skin Thrombosed external hemorrhoid 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 Trigger index finger of left hand Surgical History Surgical History H/O thumb surgery History of extraction of renal calculus Family History Family History Father Family history of congestive heart failure Hypertension Cancer of jaw CHF (congestive heart failure) Mother Carcinoma of colon Sibling Brain aneurysm Stomach cancer Sibling , stomach cancer Breast cancer Other Family history of colonic diverticulitis Social History Social History Smoking packs per day: 2 Smoking cigarettes per day: 40.0 Years smoked: 20 Smoking pack-years: 40.00 Smoking status: Former smoker Tobacco type: cigarettes Smokeless tobacco user: other Second hand tobacco smoke exposure: Yes Smoking end date: 02/25/11 Alcohol intake: current Substance use: current Substance use type: marijuana Other substance usage details: medical Lack of Transportation: No Lack of Food: Never True Current Housing: I Have Housing Concerned About Future Housing: No Difficulty Paying Gas/Electric Bills: No Difficulty Paying for Meds: No Currently Unemployed: No Education: High School Diploma/GED Difficulty w/ Childcare or Family Care: No Living arrangements: with family Occupation/Education: occupation Additional occupation/education comments: Home [employer] Gender identity (if verbalized by the patient): Male Spiritual care concerns: No Exam Narrative: GENERAL: Well-appearing, well-nourished, and in no acute distress. HEAD: Normocephalic, atraumatic. EYES: PERRLA and EOMI. ENT: Both ear canals are clear TMs are normal bilaterally, left canal with some dry flaking skin NECK: Supple. CHEST: No respiratory distress. HEART: R
== END 2023-02-23 14:17 | disposition home or self-care (01) ==
PROVIDERS: Emergency Provider Emergency Medicine; PCP Family Medicine
DX: H61.20 Impacted cerumen, unspecified ear (principal); Z87.891 Personal history of nicotine dependence; F12.90 Cannabis use, unspecified, uncomplicated
CPT/HCPCS: 69209; 99282; A9270

== ENCOUNTER 2023-09-02 08:54 | Outpatient (CLI) | payer OTHER, SELFPAY ==
[2023-09-02 09:32] LABS: Alanine Aminotransferase 15 U/L (6-50); Albumin Level 4.6 g/dL (3.5-5.1); Alkaline Phosphatase 63 U/L (38-126); Anion Gap 7 mmol/L (4-12); Aspartate Amino Transferase 20 U/L (17-59); Bilirubin,Total 0.9 mg/dL (0.2-1.3); Blood Urea Nitrogen 30 mg/dL (9-20); Calcium 9.4 mg/dL (8.4-10.2); Carbon Dioxide 28 mmol/L (22-30); Chloride 104 mmol/L (98-107); Cholesterol 129 mg/dL (0-200); Creatine Kinase 81 U/L (55-170); Estimated Glomerular Filt Rate > 60; Glucose 106 mg/dL (65-110); HDL Direct 45 mg/dL; Potassium 4.1 mmol/L (3.4-5.0); Sodium 139 mmol/L (137-145); Triglycerides 103 mg/dL (<150)
[2023-09-02 09:43] LABS: LDL Cholesterol Direct 71 mg/dL
[2023-09-02 10:03] LABS: Prostate Specific Antigen 1.1 ng/mL (< OR = 4.0)
== END 2023-09-02 08:55 | disposition home or self-care (01) ==
LOC: ANHLAB 08:56
PROVIDERS: PCP Family Medicine; Visit Provider Physician Assistant Medical
DX: Z12.5 Encounter for screening for malignant neoplasm of prostate (principal); E78.5 Hyperlipidemia, unspecified; I10 Essential (primary) hypertension; K21.9 Gastro-esophageal reflux disease without esophagitis; R25.2 Cramp and spasm; Z13.220 Encounter for screening for lipoid disorders
CPT/HCPCS: 36415; 80053; 80061; 82550; 83735; 84153; 84443; G0103

== ENCOUNTER 2023-10-23 01:23 | Day surgery (SDC) | payer OTHER, SELFPAY ==
--- NOTE | 2023-10-15 15:08 | SUR.PREOP ---
Report to the Outpatient Waiting Room, entrance under the green pavilion located off [facility], at time ____1200___ on date ____10/23/23___. Planned Procedure Time: ____1400____. Time changes happen often and if your time is changed the preop area will call you the afternoon before. - You and your visitor will be asked to self-screen and do not enter if you have any COVID symptoms. - A mask is optional within the hospital at this time. Patients may have clear liquids (water, carbonated beverages, clear teas, apple juice) until 3 hours prior to surgery with a maximum of 20 ounces. - NO CLEAR LIQUIDS AFTER 0600 - No food from midnight until time of surgery - Infants may have breast milk until 4 hours before surgery, infant formula 6 hours prior to surgery. - Children will be allowed to drink immediately following surgery. If applicable, please bring a bottle or sippy cup to assist with drinking. Juice, water, soda, and popsicles are readily available. For infants on formula, please bring formula the day of surgery. Pacifiers are allowed. Take the following medications with a SIP of water the morning of surgery: GABAPENTIN, AMLODIPINE DO NOT STOP ANY OF YOUR OTHER PRESCRIPTION MEDICATIONS PRIOR TO SURGERY ?EXCEPT THE FOLLOWING Medications to discontinue per physician INSTRUCTED TO CALL DR TAFOYA IN REGARDS TO CONTINUING MELOXICAM Date to take last dose Please no make-up, nail mauritanian, hairspray, perfume, deodorant, or body powder the day of surgery. No jewelry (including any body piercings) or valuables the day of surgery, leave them at home. Please take a shower or bath the night before, or the morning of, surgery with an antibacterial soap. Wear comfortable, loose fitting clothing. Children are encouraged to wear pajamas. - Jewelry must be removed prior to entering the operating room. Rings and piercings that are not removed may be cut off. - The hospital will not accept responsibility for valuables. - Please leave all valuables, including medications, at home the day of surgery. If you are going home after surgery, a licensed local company flatbed truck driver must drive you home. - NO public transportation without another adult if you receive anesthesia. - We recommend that an adult stay with you for 24 hours following discharge. - We also recommend that you do not drive, make important decision, drink alcoholic beverages, or take any drugs that were not prescribed by your health care provider for at least 24 hours after your discharge time. For Pediatric surgeries, we recommend two adults accompany the child home. Follow any additional instructions given to you from your surgeon. If you or anyone in your household have experienced Covid symptoms in the past week, please notify your surgeon or the nurse liaison at the phone number below for possible testing. Telephone instructions given to LUPILLO TORRES and asked if any additional questions and then verbalized understanding. Patient advised to call surgeon office or pre surgery nurse liaison [phone] if any additional questions.
[2023-10-15 15:22] VITALS: BMI 30.2
--- NOTE | 2023-10-23 06:59 | WPDHPUPDATE1 ---
History and Physical Update Update Date/Time: 10/23/23 06:59 Patient seen and examined in pre-operative holding area. No interval change in medical history or symptoms. Patient recalls previous discussion of benefits and alternatives to procedure. Continues to desire to proceed with right middle finger a1 maxwell release and right volar wrist ganglion cyst excision. Reviewed procedure, post-op expectations and risks including but not limited to bleeding, infection, injury to tendon/nerve/vessel, decreased hand function, stiffness, RSD, no change or worsening of symptoms, recurrence. I discussed the possible use of assistants and their participation in the case. Patient stated understanding and signed the consent form wishing to proceed.
--- NOTE | 2023-10-23 07:00 | W.PM.PROC2 ---
Procedure Note - Detailed Date of Procedure 10/23/23 Pre-op Diagnosis trigger finger right middle finger and right volar wrist ganglion cyst Post-op Diagnosis Same Procedure Performed right MF a1 maxwell release and right volar wrist ganglion cyst excision Surgeon Harry Vyas MD [employer] Consultant tyrell abdi pa-c Anesthesia MAC Description of Procedure INFORMED CONSENT: The patient was seen and examined and marked in the pre-op area.? The patient signed the consent form. PROCEDURE IN DETAIL:The patient taken back to OR on the stretcher in supine position. Time out performed with anesthesia, surgeon and staff agreeing on patient's name site and surgery to be performed SCDs were placed on the lower extremities and inflated. A tourniquet was placed on {right} upper extremity and antibiotics given IV After anesthesia administered sedation I injected {6}cc 1%lido and 0.5% marcaine plain at the operative site The?{right upper extremity}?was prepped and draped in sterile fashion the??{right upper extremity} was? exsanguinated proximal to the mass with Esmarch bandage and tourniquet inflated to 250mmHg I proceeded with making a longitudinal incision over the left middle finger a1 maxwell through skin and dermis with a 15 blade scalpel. Littler scissors were used to spread down to a1 maxwell. The A1 maxwell was initially incised with 15 blade then littler scissors were used to spread above and below it proximally and distally and completing the transection entirely. Ragnell retractors were used to withdraw the FDS and FDP tendons for inspection. They were free of masses and synovitis and gliding smoothly in the sheath without triggering or crepitus. The tendos were allowed to retract back in to the wound and I irrigated with normal saline and closed with 4-0 chromic. Next, I proceeded with making a longitudinal incision over the right volar wrist mass with 15 blade through skin and dermis. Litler scissors were used to spread down to ganglion cyst and I proceeded with circumferential dissection around the cyst which was closely adherent to radial artery which was protected throughout the procedure. The cyst stalk was transected at the wrist joint capsule with bipolar but no clear capsular defect was identified to be repaired.. I irrigated with normal saline. The tourniquet was let down noting the radial artery was intact and hand was warm and well perfused. 4-0 monocryl was used for dermis and subcuticular closure. A dressing of xeroform for palm and dermabond for wrist, 4x4, roldan, was applied followed by a volar wrist splint secured with an carin bandage after the tourniquet was let down noting the hand was warm and well perfused. The patient was then awaken from anesthesia and transferred to the recovery room in stable condition.? Complications - none EBL- 0cc Disposition - home in stable conditions Tyrell Abdi PA-C was essential for positioning, retraction, closure and dressing placement [facility] [place] Surgery - Charge Forward: Surgery Billing ([id number] same for tyrell adding modifier )
[2023-10-23] MEDS: LACTATED RINGERS 1,000 ML 30 ML IV CONT (11:55)
[2023-10-23 12:02] VITALS: BP 120/79; PULSE 60; RESP 16; TEMP 36.2; O2SAT 99
--- NOTE | 2023-10-23 12:14 | WPDANESEPPF ---
Anes - Initial Pre Proc Eval Procedure: Operation Date: 10/23/23 14:00 Proposed Procedures p Right Middle Finger A-1 Chaz Release - Harry Vyas MD Date/Time: 10/23/23 12:14 Surgeon: Harry Vyas MD Pre Op Diagnosis: trigger finger right middle finger Patient Data Age: 58 Gender: M Height: 1.75 m Weight: 93 kg Allergies Allergy/AdvReac Type Severity Reaction Status Date / Time codeine Allergy Mild Gastrointestinal Verified 10/15/23 14:53 Upset Home Medications Medication Instructions Recorded Confirmed Type amlodipine 10 mg tablet 10 mg PO DAILY #90 tabs 07/30/23 10/15/23 Rx duloxetine 60 mg capsule,delayed 60 mg PO HS #90 caps 07/30/23 10/15/23 Rx release meloxicam 15 mg tablet 15 mg PO DAILY #30 tabs 07/30/23 10/15/23 Rx pantoprazole 20 mg tablet,delayed 20 mg PO QHS #90 tabs 07/30/23 10/15/23 Rx release rosuvastatin 20 mg tablet (Crestor) 20 mg PO DAILY #90 tabs 07/30/23 10/15/23 Rx gabapentin 100 mg capsule 100 mg PO BID 10/15/23 10/15/23 History hydrochlorothiazide 12.5 mg tablet 12.5 mg PO DAILY 10/15/23 10/15/23 History Patient hx anesthesia problems: none Family hx anesthesia problems: none Results Review: All pre-operative results and documents have been reviewed as part of the pre-operative evaluation. [facility] Past Medical History Medical History Acute pain of left knee Caldera's esophagus with dysplasia, unspecified Chronic pain Dietary counseling and surveillance (09/01/18) Diverticulosis Diverticulosis of intestine, part unspecified, without perforation or abscess with bleeding Dysfunction of both eustachian tubes Elevated blood pressure reading Encounter for screening for lipoid disorders Encounter for screening for malignant neoplasm of colon Encounter for screening for malignant neoplasm of prostate Finger pain, left Foot pain, left Hepatic steatosis Hydrocele of testis IBS (irritable bowel syndrome) Kidney cysts Kidney stone Mallet finger of left finger(s) Marijuana use Neck pain Patellar tendonitis Pelvic pain in male Personal history of urinary calculi Prepatellar bursitis Prostate calculus Right knee pain Screening for lipid disorders Screening for prostate cancer Splinter in skin Thrombosed external hemorrhoid 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 Trigger index finger of left hand Surgical History Surgical History H/O thumb surgery History of extraction of renal calculus Family History Family History Father Family history of congestive heart failure Hypertension Cancer of jaw CHF (congestive heart failure) Mother Carcinoma of colon Sibling Brain aneurysm Stomach cancer Sibling , stomach cancer Breast cancer Other Family history of colonic diverticulitis Social History Social History Smoking packs per day: 2 Smoking cigarettes per day: 40.0 Years smoked: 20 Smoking pack-years: 40.00 Smoking status: Former smoker Tobacco type: cigarettes Smokeless tobacco user: other Second hand tobacco smoke exposure: Yes Smoking end date: 02/25/11 Alcohol intake: former Substance use: current Substance use type: marijuana Other substance usage details: DAILY USE Lack of Transportation: No Lack of Food: Never True Current Housing: I Have Housing Concerned About Future Housing: No Difficulty Paying Gas/Electric Bills: No Difficulty Paying for Meds: No Currently Unemployed: No Education: High School Diploma/GED Difficulty w/ Childcare or Family Care: No Living arrangements: with family Occupation/Education: occupation Additional occupation/educati
[2023-10-23] MEDS: ceFAZolin 2 GM/D5W 50 ML 2 GM/50 ML BAG IVPB (12:53)
[2023-10-23] MEDS: BUPivacaine HCL 0.5% PF 30 ML VIAL INFILTRATE (13:04)
[2023-10-23] MEDS: LIDOCAINE HCL 1% LOCAL INJ 20 ML VIAL 3 ML INFILTRATE (13:05)
[2023-10-23 13:35] VITALS: BP 114/69; PULSE 46; RESP 15; O2SAT 98
[2023-10-23 13:55] VITALS: BP 143/81; PULSE 50
[2023-10-23 14:25] VITALS: BP 152/80; PULSE 54; RESP 15
== END 2023-10-23 14:40 | disposition home or self-care (01) ==
PROVIDERS: PCP Family Medicine; Visit Provider Plastic Surgery
PROC: (CPT 26055; principal; 2023-10-23 14:00)
DX: M65.331 Trigger finger, right middle finger (principal); M67.431 Ganglion, right wrist; Z87.891 Personal history of nicotine dependence; F12.90 Cannabis use, unspecified, uncomplicated; E66.9 Obesity, unspecified; Z68.30 Body mass index [BMI] 30.0-30.9, adult
CPT/HCPCS: 26055; 25111; 88305; A9270; J0690; J2704; J3010; J7120

== ENCOUNTER 2023-12-11 08:55 | Outpatient (CLI) | payer OTHER, SELFPAY ==
[2023-12-11 09:29] LABS: Basophils Absolute Auto 0.1 K/mm3 (0.0-0.1); Basophils Percent Auto 1.2 % (0.2-1.2); Eosinophils Absolute Auto 0.2 K/mm3 (0-0.3); Eosinophils Percent Auto 3.2 % (0-4.4); Hematocrit 46.7 % (42.0-52.0); Hemoglobin 15.8 g/dL (14.0-18.0); Immature Granulocyte Absolute 0.02 K/mm3 (0.00-0.031); Immature Granulocyte Percent A 0.3 % (0-0.5); Lymphocytes Absolute Auto 0.93 K/mm3 (0.9-3.2); Lymphocytes Percent Auto 14.2 % (18.3-44.2); Mean Corpuscular HGB Conc 33.8 g/dl (32-36); Mean Corpuscular Hemoglobin 30.9 pg (26-34); Mean Corpuscular Volume 91.2 fl (80-100); Mean Platelet Volume 8.9 fl (7.4-10.4); Monocytes Absolute Auto 0.6 K/mm3 (0.1-0.6); Monocytes Percent Auto 8.4 % (2.6-8.5); Neutrophils Absolute Auto 4.8 K/mm3 (1.3-6.7); Neutrophils Percent Auto 72.7 % (45.5-73.1); Platelet Count Result 255 k/mm3 (150-375); Red Blood Count 5.12 M/mm3 (4.6-6.20); Red Cell Distribution Width 12.8 % (11.5-14.5); White Blood Count 6.6 K/mm3 (4.5-10.0)
[2023-12-11 09:44] LABS: Anion Gap 9 mmol/L (4-12); Blood Urea Nitrogen 29 mg/dL (9-20); Calcium 9.4 mg/dL (8.4-10.2); Carbon Dioxide 23 mmol/L (22-30); Chloride 105 mmol/L (98-107); Cholesterol 125 mg/dL (0-200); Creatine Kinase 105 U/L (55-170); Estimated Glomerular Filt Rate > 60; Glucose 104 mg/dL (65-110); HDL Direct 43 mg/dL; Potassium 3.8 mmol/L (3.4-5.0); Sodium 137 mmol/L (137-145); Triglycerides 116 mg/dL (<150)
[2023-12-11 09:55] LABS: LDL Cholesterol Direct 49 mg/dL
[2023-12-11 10:50] LABS: Folic Acid 4.9 ng/mL (2.76->20)
[2023-12-14 22:04] LABS: Vitamin B6 4.6 ng/mL (2.1-21.7)
== END 2023-12-11 08:56 | disposition home or self-care (01) ==
LOC: ANHLAB 08:59
PROVIDERS: PCP Family Medicine
DX: Z13.0 Encounter for screening for diseases of the blood and blood-forming organs and certain disorders involving the immune mechanism (principal); R20.0 Anesthesia of skin; R20.2 Paresthesia of skin; R25.2 Cramp and spasm; N28.9 Disorder of kidney and ureter, unspecified
CPT/HCPCS: 36415; 80048; 80061; 82550; 82607; 82746; 84207; 85025

== ENCOUNTER 2023-12-27 10:33 | Outpatient (CLI) | payer OTHER, SELFPAY ==
--- NOTE | ~2023-12-27 | XR_ITS ---
AP and lateral view of the left hip Clinical history: Pain Findings: No acute fracture or dislocation is seen. Osseous alignment is anatomic. Left hip joint is intact. Soft tissues are unremarkable. Impression: No significant abnormality is seen. Reviewed, dictated and finalized at location M. Impression: No significant abnormality is seen.
--- NOTE | ~2023-12-27 | XR_ITS ---
3 VIEWS LUMBAR SPINE Ordering provider: Jena Samano History: . M54.10 - Radiculopathy, site unspecified PAIN TO LOW BACK . Comparison: None. FINDINGS: VERTEBRAL BODIES: No visible fracture or subluxation. Degenerative changes of the spine. DISK SPACES: Narrowing of the disc L5-S1. SOFT TISSUES: Normal. IMPRESSION: No acute osseous abnormality lumbar spine. Degenerative disc changes at the level of L5-S1. Reviewed, dictated and finalized at location A.
[2023-12-27 11:33] LABS: Anion Gap 7 mmol/L (4-12); Blood Urea Nitrogen 19 mg/dL (9-20); Calcium 8.8 mg/dL (8.4-10.2); Carbon Dioxide 27 mmol/L (22-30); Chloride 104 mmol/L (98-107); Estimated Glomerular Filt Rate > 60; Glucose 95 mg/dL (65-110); Potassium 3.8 mmol/L (3.4-5.0); Sodium 138 mmol/L (137-145)
== END 2023-12-27 10:34 | disposition home or self-care (01) ==
LOC: ANHIMG 10:37
PROVIDERS: PCP Family Medicine; Visit Provider Nurse Practitioner Family
DX: N28.9 Disorder of kidney and ureter, unspecified (principal); M51.379 Other intervertebral disc degeneration, lumbosacral region without mention of lumbar back pain or lower extremity pain
CPT/HCPCS: 36415; 72100; 73502; 80048

== ENCOUNTER 2024-03-02 12:34 | Emergency (ER) | payer OTHER, SELFPAY ==
--- NOTE | ~2024-03-02 | CT_ITS ---
EXAMINATION: CT lumbar spine wo con DATE: 03/02/2024 14:01 INDICATION: Back pain after injury TECHNIQUE: Computed tomography (CT) of the lumbar spine was performed without intravenous contrast. Hanane miguel dose-length product was 1072.31 mGy-cm. Automated exposure control and iterative reconstruction te stacey were employed. COMPARISON: None FINDINGS: Normal lumbar alignment. There is disc narrowing and endplate hypertrophy at L5-S1 causing mild bilateral neuroforaminal narrowing. No acute fracture, subluxation or dislocation. There is smal l sclerotic lesions in the pelvis and L5, likely benign bone islands in the absence of known malignan cy. There are bilateral renal cysts. There is colonic diverticulosis without evidence for diverticuli tis. There is atherosclerosis of the aorta. No lymphadenopathy. Mild levocurvature of the lumbar spin e. No acute fracture or traumatic malalignment. IMPRESSION: 1. No acute abnormality of the lumbar spine. 2: Moderate lumbar spondylosis. Reviewed, dictated and finalized at location B. VE MACHINE TENDER
--- NOTE | ~2024-03-02 | CT_ITS ---
EXAMINATION: CT cervical spine wo con DATE: 03/02/2024 14:01 INDICATION: Neck pain after injury TECHNIQUE: Computed tomography (CT) of the cervical spine was performed without intravenous contrast. The dose-length product was 526.72 mGy-cm. COMPARISON: No prior studies for comparison. FINDINGS: Straightening of cervical lordosis. Craniovertebral junction is normal. There is disc narro wing and endplate degenerative change at multiple levels extending from C3-4 through C7-T1. No eviden ce for perched facet. There is moderate multilevel facet and uncinate hypertrophy. IMPRESSION: 1. No acute abnormality of the cervical spine. 2: Moderate cervical spondylosis. Reviewed, dictated and finalized at location B. LE PUNCH OPERATOR
--- NOTE | ~2024-03-02 | CT_ITS ---
EXAMINATION: CT BRAIN W/O DATE: 03/02/2024 14:00 INDICATION: Head injury TECHNIQUE: Computed tomography (CT) of the head was performed without intravenous contrast. The dose- length product was 605.33 mGy-cm. Automated exposure control and iterative reconstruction technique w ere employed. COMPARISON: 04/02/2018 FINDINGS: Normal brain parenchymal volume for age. Normal harrell-white differentiation. No acute intrac ranial hemorrhage, infarction, mass or mass effect. No ventriculomegaly or midline shift. Midline sagittal images demonstrate a normal corpus callosum, c raniovertebral junction and sella turcica. Basilar cisterns are patent. Paranasal sinuses and mastoids are pneumatized. No depressed skull fractures. IMPRESSION: 1. No acute intracranial abnormality. Reviewed, dictated and finalized at location B. OBIOLOGIST
[2024-03-02 12:40] VITALS: BP 155/100; PULSE 64; RESP 16; TEMP 36.4; O2SAT 99
--- NOTE | 2024-03-02 13:39 | ED_ITS ---
HPI - Fall General Chief Complaint: Fall <Saba Garcia PA-C - Last Filed: 03/03/24 11:08> Stated Complaint: fall <Saba Garcia PA-C - Last Filed: 03/03/24 11:08> Time Seen by Provider: 03/02/24 13:39 <Saba Garcia PA-C - Last Filed: 03/03/24 11:08> Focused HPI: This is a 58 year old male that presents to the ER for low back pain after a fall last night. Reports he slipped and fell backwards. He did hit his head. He did not lose consciousness. Reports since he has had low back pain. Also reports tingling and weakness in his left leg. Denies bowel or bladder incontinence. GENERAL: Well-appearing, well-nourished, and in no acute distress. HEAD: Normocephalic, atraumatic. CHEST: Clear to auscultation. ?No respiratory distress. HEART: Regular rate and rhythm.? NEURO: ?Alert and oriented x3. Patient screened in triage and initial orders placed.? ?Additional care and disposition to be based upon?diagnostic testing and treatment. <Saba Garcia PA-C - Last Filed: 03/03/24 11:08> History of Present Illness HPI Narrative: Concur with the above with following additions/corrections: Fell at work. He is transitioning from the rug to the hard floor when he slipped. He hit his head but did not lose consciousness. Not on anticoagulation. He has a history with chronic back pain due to L5 narrowing at baseline and for this he intermittently has sciatica of the left leg. Today he is experiencing low back pain that radiates down his left leg. He picked up something heavy the other night and was incontinent of his bowels but it was a loose stool and has not happened since. He will sometimes experience paresthesias way as sciatica at including today. Patient takes Tylenol every day at baseline. He takes meloxicam as well but states he has been advised to not take other NSAIDs given his IBS. He did recently finish a 5 day course of prednisone for his back pain but is not chronically on steroids. Patient starts physical therapy on March 09 for this. His pain is slightly better with forward flexion and does lumbar spine. Patient states he was having pain in his groin the other night because of the pain but not presently. <April Mayfield MD - Last Filed: 03/02/24 19:58> Related Data Home Medications: Home Medications ?Medication ?Instructions ?Recorded ?Confirmed ?Last Taken ?Type gabapentin 100 mg capsule 100 mg PO BID 10/15/23 03/03/24 Unknown History <Saba Garcia PA-C - Last Filed: 03/03/24 11:08> Allergies/Adverse Reactions: Allergies Allergy/AdvReac Type Severity Reaction Status Date / Time codeine AdvReac Mild Gastrointestinal Verified 03/03/24 07:22 Upset <Saba Garcia PA-C - Last Filed: 03/03/24 11:08> Review of Systems Review of Systems: All systems reviewed & are unremarkable except as noted in HPI and below <Saba Garcia PA-C - Last Filed: 03/03/24 11:08> COUNTS INCLUDE 234 BEDS AT THE [facility] Past Medical History Medical History: Medical History Sciatica Radiculopathy Prepatellar bursitis Patellar tendonitis Right knee pain Screening for prostate cancer Screening for lipid disorders Chronic pain Acute pain of left knee Caldera's esophagus with dysplasia, unspecified Dietary counseling and surveillance (09/01/18) Diverticulosis of intestine, part unspecified, without perforation or abscess with bleeding Dysfunction of both eustachian tubes Elevated blood pressure reading Encounter for screening for lipoid disorders Encounter for screening for malignant neoplasm of colon Encounter for screening for malignant neoplasm of prostate Finger pain, left Foot pain, left Hepatic steatosis Hydrocele of testis Kidney cysts Kidney stone Mallet finger of left finger(s) Marijuana use Pelvic pain in male Personal history of urinary calculi Prostate calculus Splinter in skin Thrombosed external hemorrhoid 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 Trigger index finger of left hand IBS (irritable bowel syndrome) Diverticulosis Neck pain <Saba Garcia PA-C - Last Filed: 03/03/24 11:08> Surgical History Surgical History: Surgical History H/O thumb surgery History of extraction of renal calculus <Saba Garcia PA-C - Last Filed: 03/03/24 11:08> Family History Family History: Family History Father Family history of congestive heart failure Hypertension Cancer of jaw CHF (congestive heart failure) Mother Carcinoma of colon Sibling Brain aneurysm Stomach cancer Sibling , stomach cancer Breast cancer Other Family history of colonic diverticulitis <Saba Garcia PA-C - Last Filed: 03/03/24 11:08> Social History Social History: Social History Social History: Caffeine-coffee Smoking packs per day: 2 Smoking cigarettes per day: 40.0 Years smoked: 20 Smoking pack-years: 40.00 Smoking status: Former smoker Tobacco type: cigarettes Smokeless tobacco user: other Second hand tobacco smoke exposure: Yes Smoking end date: 02/25/11 Alcohol intake: former Substance use: current Substance use type: marijuana Other substance usage details: DAILY USE Do You Feel Safe in your Home?: Yes Lack of Transportation: No Lack of Food: Never True Current Housing: I Have Housing Concerned About Future Housing: No Difficulty Paying Gas/Electric Bills: No Difficulty Paying for Meds: No Currently Unemployed: No Education: High School Diploma/GED Difficulty w/ Childcare or Family Care: No Living arrangements: with family Occupation/Education: occupation Additional occupation/education comments: Home [employer] Gender identity (if verbalized by the patient): Male Spiritual care concerns: No <Saba Garcia PA-C - Last Filed: 03/03/24 11:08> Exam Narrative: GENERAL: Well-appearing, well-nourished, and in no acute distress. HEAD: Normocephalic, atraumatic. EYES: Non injected, non icteric ENT: Nares clear, no rhinorrhea or epistaxis. Poor dentition. NECK: Supple. CHEST: Speaking in full sentences. No respiratory distress. HEART: Regular rate and rhythm. . ABDOMEN: Soft, nondistended. EXTREMITIES: Normal range of motion. No lower extremity edema. SKIN: Warm, dry, no rash. BACK: No midline TTP of mid thoracic of lumbar spinous processes which are midline; no bony deformity; no spasm of paraspinal muscles or right buttock NEURO: No focal deficits. Alert and oriented x3. Brisk patellar reflexes bilaterally. Sensation intact bilaterally. 4/5 left ankle dorsiflexion, 5/5 right ankle dorsiflexion; 5/5 bilateral ankle plantar flexion; 5/5 bilateral knee flexion extension. Patient is able to demonstrate flexion and extension at lumbar spine. PSYCH: Normal mood and affect. <April Mayfield MD - Last Filed: 03/02/24 19:58> Course Vital Signs Vital signs: Vital Signs Temperature 97.6 F 03/02/24 12:40 Pulse Rate 64 03/02/24 12:40 Respiratory Rate 16 03/02/24 12:40 Blood Pressure 155/100 H 03/02/24 12:40 Pulse Oximetry 99 03/02/24 12:40 Oxygen Delivery Room Air 03/02/24 12:40 Temperature 97.6 F 03/02/24 12:40 Pulse Rate 64 03/02/24 12:40 Respiratory Rate 16 03/02/24 12:40 Blood Pressure 155/100 H 03/02/24 12:40 Pulse Oximetry 99 03/02/24 12:40 Oxygen Delivery Room Air 03/02/24 12:40 <Saba Garcia PA-C - Last Filed: 03/03/24 11:08> Vital Signs Temperature 97.6 F 03/02/24 12:40 Pulse Rate 64 03/02/24 12:40 Respiratory Rate 16 03/02/24 12:40 Blood Pressure 155/100 H 03/02/24 12:40 Pulse Oximetry 99 03/02/24 12:40 Oxygen Delivery Room Air 03/02/24 12:40 Temperature 97.6 F 03/02/24 12:40 Pulse Rate 64 03/02/24 12:40 Respiratory Rate 16 03/02/24 12:40 Blood Pressure 155/100 H 03/02/24 12:40 Pulse Oximetry 99 03/02/24 12:40 Oxygen Delivery Room Air 03/02/24 12:40 <April Mayfield MD - Last Filed: 03/02/24 19:58> MDM - Fall MDM Narrative Medical decision making narrative: Patient presents with low back pain radiating into his left leg. He has a history of chronic back pain with occasional sciatica and is due to start physical therapy on the . He he had an accidental fall at work today and has since been having acute worsening of his pain. He also struck his head during the fall. In the emergency department he is afebrile with vital signs notable for hypertension. Patient slipped when transitioning from rug to the ground, potentially due to tracking in water given the snow. Back has no deformities. Curvature is within normal limits. No tenderness is noted on palpation of the spinous processes which are midline. Lumbar paraspinal muscles are not tender and are without spasm. Patient demonstrates flexion, extensionof the lumbar spine and actually has some improvement with flexion. Sensation to the lower extremities is normal bilaterally. Dorsiflexion of left ankle is slightly diminished. He states he has a chronic foot drop and this, combined with his history is why he is due to start PT soon. Patient notes some incontinence of bowel when he picked up something heavy together night but it was loose stool and has not happened subsequently. Postvoid residual with 27 mm. Brisk patellar reflexes. Patient given pain medicines while in the ED and discharged home with prescriptions for multimodal pain management. Already takes meloxicam at baseline. Advised follow-up with primary care physician and given ED return precautions. He verifies understanding and is in agreement. Stable for dischar ge. <April Mayfield MD - Last Filed: 03/02/24 19:58> Differential Diagnosis Differential diagnosis: Likely other (Vertebral fracture; intracranial hemorrhage; subluxation, sciatica/radiculopathy; less suspicion for cauda equina, epidural abscess) <April Mayfield MD - Last Filed: 03/02/24 19:58> Lab Data Attestation: I reviewed the patient's lab results. <April Mayfield MD - Last Filed: 03/02/24 19:58> Lab results narrative: Unremarkable <April Mayfield MD - Last Filed: 03/02/24 19:58> Labs: Lab Results 03/02/24 Range/Units 18:49 Urine Color Yellow (Yellow) Urine Appearance Clear (Clear) Urine pH 5.5 (5.0-9.0) Ur Specific [place] 1.029 (1.001-1.035) Urine Protein Negative (Negative) mg/dL Urine Glucose (UA) Negative (Negative) mg/dL Urine Ketones Negative (Negative) mg/dL Ur Blood (Man) Negative (Negative) Urine Nitrate Negative (Negative) Urine Bilirubin Negative (Negative) Urine Urobilinogen 1.0 (<2.0) mg/dL Leukocyte Esterase Rfl Trace H (Negative) CARROLL/UL Urine RBC 0-2 (0-2) /hpf Urine WBC 0-5 (0-3) /hpf Ur Squamous Epith Cells None seen (Few) /hpf Urine Bacteria None seen /hpf Urine Casts 0-2 <Saba Garcia PA-C - Last Filed: 03/03/24 11:08> Lab Results 03/02/24 Range/Units 18:49 Urine Color Yellow (Yellow) Urine Appearance Clear (Clear) Urine pH 5.5 (5.0-9.0) Ur Specific [place] 1.029 (1.001-1.035) Urine Protein Negative (Negative) mg/dL Urine Glucose (UA) Negative (Negative) mg/dL Urine Ketones Negative (Negative) mg/dL Ur Blood (Man) Negative (Negative) Urine Nitrate Negative (Negative) Urine Bilirubin Negative (Negative) Urine Urobilinogen 1.0 (<2.0) mg/dL Leukocyte Esterase Rfl Trace H (Negative) CARROLL/UL Urine RBC 0-2 (0-2) /hpf Urine WBC 0-5 (0-3) /hpf Ur Squamous Epith Cells None seen (Few) /hpf Urine Bacteria None seen /hpf Urine Casts 0-2 <April Mayfield MD - Last Filed: 03/02/24 19:58> Imaging Data Radiologist's impression: Impressions Head CT 03/02/24 14:05 IMPRESSION: 1. No acute intracranial abnormality. Cervical Spine CT 03/02/24 14:17 IMPRESSION: 1. No acute abnormality of the cervical spine. 2: Moderate cervical spondylosis. Lumbar Spine CT 03/02/24 14:26 IMPRESSION: 1. No acute abnormality of the lumbar spine. 2: Moderate lumbar spondylosis. <April Mayfield MD - Last Filed: 03/02/24 19:58> Critical Care Time Critical Care Time Critical Care Time: No <Saba Garcia PA-C - Last Filed: 03/03/24 11:08> Discharge Plan Discharge Clinical Impression: Lumbar spondylosis, Cervical spondylosis, Left sided sciatica Fall Qualifiers: Encounter type: initial encounter Qualified Code(s): W19.XXXA - Unspecified fall, initial encounter <Saba Garcia PA-C - Last Filed: 03/03/24 11:08> Patient Disposition: Home, Self-Care <KIKO Alonso Last Filed: 03/03/24 11:08> Condition: Stable <KIKO Alonso Last Filed: 03/03/24 11:08> Instructions: Antibiotic Form, Sciatica (ED), Fall Prevention (ED), Lower Back Exercises (ED) <KIKO Alonso Last Filed: 03/03/24 11:08> Additional Instructions: Take the combination of medications prescribed for multimodal pain strategy to help reduce the kasper such that you can perform low back exercises. Go to physical therapy as already planned. Return to the ER if you have increased pain in your back, you develop lower extremity weakness/numbness/paralysis, you have numbness or tingling in your private parts, or you are unable to control your ability to urinate/stool. <Saba Garcia PA-C - Last Filed: 03/03/24 11:08> Patient Language: Luxembourgish <KIKO Alonso Last Filed: 03/03/24 11:08> Prescriptions: New diazepam [Valium] 5 mg tablet 2.5 mg PO HS PRN (Reason: muscle spasm) Qty: 5 0RF acetaminophen 500 mg capsule 1,000 mg PO Q6H PRN (Reason: pain) Qty: 30 0RF lidocaine 4 % adhesive patch,medicated 1 patch topical DAILY PRN (Reason: pain) Qty: 10 0RF No Action rosuvastatin [Crestor] 20 mg tablet 20 mg PO DAILY Qty: 90 1RF pantoprazole 20 mg tablet,delayed release (DR/EC) 20 mg PO QHS Qty: 90 6RF gabapentin 100 mg capsule 100 mg PO BID Rx Instructions: 100mg in am and 300mg at hs duloxetine 60 mg capsule,delayed release(DR/EC) 60 mg PO HS Qty: 90 1RF Rx Instructions: take one tablet at bedtime. meloxicam 15 mg tablet 15 mg PO DAILY Qty: 30 2RF amlodipine 10 mg tablet 10 mg PO DAILY Qty: 90 0RF tizanidine 4 mg tablet 4 mg PO QHS PRN (Reason: muscle spasticity) Qty: 20 0RF prednisone 10 mg tablet 10 mg PO TID Qty: 15 0RF Rx Instructions: Take 3 tablets each morning for 5 day. <Saba Garcia PA-C - Last Filed: 03/03/24 11:08> Follow-up/Referrals: Luis Garzon MD [Primary Care Provider] - <Saba Garcia PA-C - Last Filed: 03/03/24 11:08> Stand Alone Forms: Work/School Release IP <Saba Garcia PA-C - Last Filed: 03/03/24 11:08> Time of Disposition: 19:16 <Saba Garcia PA-C - Last Filed: 03/03/24 11:08> 19:16 <April Mayfield MD - Last Filed: 03/02/24 19:58>
[2024-03-02] MEDS: HYDROcodone/acetaminophen (*CRX) 5-325 MG TABLET 1 TAB PO (18:27)
[2024-03-02] MEDS: KETOROLAC 30 MG/ML VIAL (*BKC) 15 MG IM (18:28)
[2024-03-02] MEDS: LIDOCAINE 5% PATCH 1 PATCH TRANSDERM (18:28)
[2024-03-02 19:02] LABS: Add Urine Microscopic? YES; Appearance Urine Clear (Clear); Bacteria Urine None Seen /hpf; Bilirubin Urine Negative (Negative); Blood Urine Negative (Negative); Color Urine Yellow (Yellow); Glucose Urine UA Negative (Negative); Ketones Urine Negative (Negative); Leukocyte Esterase Ur Trace LEU/UL (Negative); Nitrate Urine Negative (Negative); Non Pathogenic Casts 0-2; Protein Urine Negative (Negative); RBC Urine 0-2 /hpf (0-2); Specific Grav Ur 1.029 (1.001-1.035); Squamous Epithelial Cell Urine None Seen /hpf (Few); WBC Urine 0-5 /hpf (0-3); pH Urine 5.5 (5.0-9.0)
--- OUTSIDE RECORDS SUMMARY | 2024-03-08 21:54 | XMS_ITS | Continuity of Care Document ---
Author Organization [facility], [facility] [place] Address [address] [place] [address] Care Team Providers Care Social Service Worker Name Role Phone NIVIA BROOKS Primary Care Provider [phone] NIVIA BROOKS Referring Provider Assessment Encounter Date Assessment Date Assessment LastModified by Organization Details LastModified Time 01/27/2024 01/27/2024 This note is dictated and transcribed by [employer] Direct Software. Site Planner variances may occur. Despite proofreading, typographical errors may occur. Occasional wrong-word or 'wukxy-t-swda' substitutions may have occurred due to the inherent limitations of voice recording. Read the chart carefully and recognize, using context, where substitutions have occurred. mike Not available 01/28/2024 09:33:56 Plan of Treatment Reminders Order Date Submit Date Provider Last Modified By Organization Details Last Modified Time Details Appointments None record ed. Lab None record ed. Referral None record ed. Procedures None record ed. Surgeries None record ed. Imaging XR, foot, 3 or more view 024 01/28/20 24 [email or web address] [facility] [place], [address], [place], [address], 09:37:50 XR, foot, 3 or more view 024 01/28/20 24 [email or web address] [facility] [place], [address], [place], [address], 4 09:37:50 Medication Orders None record ed. Patient TargetsNo targets recorded. Patient InstructionsNo instructions recorded. Reason for Referral None Reported. Results Created Date Observation Date Name Description Value Unit Range Abnormal Flag Note LastModifiedBy Organization Detail LastModifiedTime 01/28/20 24 XR, foot, 3 or more view No observ ation record ed. [email or web address] [facility] [place] [address], [place], [address], 01/28/2024 09:37:20 01/28/20 24 XR, foot, 3 or more view No observ ation record ed. [email or web address] [facility] [place] [address], [place], [address], 01/28/2024 09:37:46 Result Notes None recorded. Problems Name Problem SNOMED Code Status Onset Date Resolution Date Notes Provider Name and Address Organization Details Recorded Time Pain in both feet 87075112448490796 Active 2022 Lauri Jin DPM [address], [address], [place], [address], [email or web address] 09:29:05 Hammer toe 815948136 Active 2022 Lauri Jin DPM [address], [address], [place], [address], [email or web address] 09:29:17 Problem Notes None recorded. Procedures Surgical History Date Name Laterality Status Provider Name and Address Organization Details Recorded Time release of trigger finger completed Yamileth Olsen [employer] 07/30/2022 10:03:17 procedure on ulna completed Yamileth Olsen [employer] 07/30/2022 10:03:36 Carpal tunnel surgery completed Yamileth Oslen [employer] 07/30/2022 10:03:50 Rotator cuff surgery completed Yamileth Olsen [employer] 07/30/2022 10:03:56 excision of ganglion cyst completed Yamileth [employer] 07/30/2022 10:04:09 Imaging Results Imaging Date Name Status LastModified by Organiz ation Details LastModified Time 01/28/2024 XR, foot, 3 or more view completed [email or web address] [facility] [place] [address], [place], [address], 01/28/2024 09:37:20 01/28/2024 XR, foot, 3 or more view completed [email or web address] [facility] [place] [address], [place], [address], 01/28/2024 09:37:46 Procedure Notes None recorded. Medical Equipment None Reported. Allergies Allergen ID Allergen Name Allergen Category Reaction Reaction Severity Criticality Documentation Date Start Date Code Code System Note Provider Name and Address Organization Details Recorded Time 51142 codeine medicatio n Not available Not available Not available 07/30/2022 2670 RxNorm Yamileth valencia [facility] [employer] 10:00:40 Medications Name Sig Start Date Stop Date Status Note LastModified by Organization Details LastModified Time cyclobenzap rine 10 mg tablet TAKE 1 TABLET BY MOUTH THREE TIMES DAILY NEEDED FOR MUSCLE SPASM active Not Available Not Available No t Available amoxicillin 500 mg capsule TAKE 1 CAPSULE BY MOUTH THREE TIMES DAILY EVERY 8 HOURS 07/30 completed Not Available Not Available Not Available prednisone 10 mg tablet TAKE 3 TABLET BY MOUTH EVERY MORNING FOR 5 DAYS active Not Available Not Available No t Available ibuprofen 800 mg tablet TAKE 1 TABLET BY MOUTH THREE TIMES DAILY NEEDED FOR PAIN 07/30 completed Not Available Not Available Not Available tizanidine 4 mg tablet TAKE 1 TABLET BY MOUTH EVERY DAY AT BEDTIME NEEDED FOR MUSCLE SPASMS active Not Available Not Available No t Available meloxicam 15 mg tablet TAKE 1 TABLET BY MOUTH DAILY active Not Available Not Available No t Available amlodipine 5 mg tablet TAKE 1 TABLET BY MOUTH DAILY 01/26 completed Not Available Not Available Not Available tramadol 50 mg tablet TAKE 1 TABLET BY MOUTH EVERY 6 HOURS NEEDED FOR PAIN active Not Available Not Available No t Available pantoprazol e 20 mg tablet,justo yed release TAKE 1 TABLET BY MOUTH EVERY DAY AT BEDTIME active Not Available Not Available No t Available temazepam 30 mg capsule TAKE 1 CAPSULE BY MOUTH AT BEDTIME active Not Available Not Available No t Available amlodipine 10 mg tablet TAKE 1 TABLET BY MOUTH DAILY active Not Available Not Available No t Available omeprazole 20 mg capsule,del ayed release TAKE 1 CAPSULE BY MOUTH DAILY active Not Available Not Available No t Available gabapentin 100 mg capsule TAKE 1 CAPSULE BY MOUTH IN THE MORNING AND 3 CAPSULES AT BEDTIME active Not Available Not Available No t Available rosuvastati n 20 mg tablet TAKE 1 TABLET BY MOUTH DAILY active Not Available Not Available No t Available duloxetine 60 mg capsule,del ayed release TAKE 1 CAPSULE BY MOUTH EVERY NIGHT AT BEDTIME active Not Available Not Available No t Available hydrochloro thiazide 12.5 mg tablet TAKE 1 TABLET BY MOUTH DAILY FOR BLOOD PRESSURE active Not Available Not Available No t Available Vitals Date Recorded Body height Body mass index (BMI) Body weight Heart rate Respiratory rate Oxygen saturation Oxygen saturation in Arterial blood by Pulse oximetry Systolic blood pressure Diastolic blood pressure Provider Name and Address Organization Details Last Updated DateTime 4 175.26 cm 32.5 kg/m2 94037.3 2 g 84 /min 14 /min 98 % 98 % 139 mm[Hg] 83 mm[Hg] Yamileth Olsen [facility] [employer] 4 16:16:45 Social History Question Answer Notes LastModified by Organizat ion Details LastModified Time Tobacco Smoking Status Former Smoker Yamileth valencia [employer] 07/30/2022 10:03:08 What Is Your Level Of Alcohol Consumption? None Information not available 07/30/2022 What Is Your Level Of Caffeine Consumption? Moderate Information not available 07/30/2022 What Was The Date Of Your Most Recent Tobacco Screening? 07/30/2022 Information not available 07/30/2022 Do You Use Any Illicit Or Recreational Drugs? No Information not available 07/30/2022 Has Tobacco Cessation Counseling Been Provided? No Information not available 07/30/2022 Do You Or Have You Ever Used Any Other Forms Of Tobacco Or Nicotine? No Information not available 07/30/2022 Sex: Unknown Functional Status None recorded. Mental Status None recorded. Family History Relationship Description Onset Age of this Age Resolved Age Notes LastModified by Organization Details LastModified Time Father Diabetes mellitus Not available 2022 10:00:54 Father Family history of stroke Not available 2022 10:01:05 Father Hypertensive disorder Not available 2022 10:01:17 Father Heart disease Not available 2022 10:01:35 Father Family history of malignant neoplasm Not available 2022 10:01:52 Mother Family history of malignant neoplasm Not available 2022 10:01:52 Sister Family history of malignant neoplasm Not available 2022 10:01:52 Medical History Condition Response BOWEL PROBLEMS Y HEARTBURN / REFLUX Y PAIN HYPERTENSION Y STROKE/TIA Y Past Encounters Encounter ID Performer Location Encounter Start Date Encounter Closed Date Diagnosis/Indication Diagnosis SNOMED-CT Code Diagnosis ICD10 Code Diagnosis Note [id number] Lauri Jin DPM [facility] [place] [address] [place] [address] 01/27/2024 16:08:27 02/20/2024 16:41:26 Pain in both feet 6739085567 5573931 M79.671 M79.672 x-rays reviewed the patientFol low-up in February Hammer toe 343682187 M20 .41 M20.42 educated on treatment optionsCon tinue conservati ve therapyin February discuss surgical optionsfol low-up February Health Concerns Section Related Observation LastModified by Organization Detai ls LastModified Time None Recorded Concern Status LastModified by Organization Details LastModified Time None Recorded Payers Encounter Date Sequence Insurance Name Policy Number Policy Hilton Covered Member ID Hilton Member ID Guarantor Name 01/27/2024 1 [facility] - DOS ON OR AFTER 20 (MEDICAID REPLACEMENT - HMO) Ming Nieves [id number] Ming Nieves Notes Date Note Type Note Provider Name and Address Organization Details Recorded Time 01/27/2024 text/html . Patient is a 58-year-old male who presents the office with complaints painful hammertoes to the bilateral feet. Patient states that the hammertoes continued to be problematic he has changed shoe gear to wider shoes which has helped but he continues have pain worse to the 2nd through 4th toes bilaterally he denies any open wounds. Patient states that he would like to pursue surgery secondary to failed conservative therapy. I did recommend that he continue conservative therapy at this time with offloading silicone toe sleeves. Patient is to follow-up in February for surgical clearance and approval. Lauri Jin DPM [address] [facility] [address] [facility] [address], [place], [address], [place] [facility] [employer] 01/28/2024 09:38:27
--- OUTSIDE RECORDS SUMMARY | 2024-03-08 21:54 | XMS_ITS | Encounter Summary ---
Author Organization [facility] Address [address] [place] [address] Phone [email or web address] Care Team Providers Care Chocolate Temperer Name Role Phone Unavailable Primary Care Provider Unavailabl e Encounter Details Date Type Department Care Team (Late st Contact Info) Description 12/07/2021 12:40 PM CDT Immunization [address] [address] Jena Crews RN [address] [place] [address] Encounter for immunization (Primary Dx) Social History Tobacco Use Types Packs/Day Years Used Date Smoking Tobacco: Never Assessed Intimate Partner Violence Answer Date R ecorded Insults You Not on file 12/07/2021 Threatens You Not on file 12/07/2021 Screams at You Not on file 12/07/2021 Physically Hurt Not on file 12/07/2021 Intimate Partner Violence Score Not on file 12/07/2021 Sex and Gender Information Value Date Recorded Sex Assigned at Not on file Legal Sex Male 12:36 PM CDT Gender Identity Not on file Sexual Orientation Not on file documented as of this encounter Plan of Treatment Not on file documented as of this encounter Visit Diagnoses Diagnosis Encounter for immunization- Primary documented in this encounter
--- OUTSIDE RECORDS SUMMARY | 2024-03-08 21:54 | XMS_ITS | Encounter Summary ---
Author Organization [facility] Address [address] [place] [address]. [place], [place] [address] [place] [address] Care Team Providers Care Senior Network Administrator Name Role Phone Unavailable Primary Care Provider Unavailabl e Encounter Details Date Type Department Care Team (Late st Contact Info) Description 04/16/1995 Abstract [facility]ONE[facility] CONVERSION [place], [place] [address] , Generic Conversion, Social History Tobacco Use Types Packs/Day Years Used Date Smoking Tobacco: Never Assessed Sex and Gender Information Value Date Recorded Sex Assigned at Not on file Legal Sex Male 7:10 PM CDT Gender Identity Not on file Sexual Orientation Not on file documented as of this encounter Plan of Treatment Not on file documented as of this encounter Visit Diagnoses Not on filedocumented in this encounter
--- OUTSIDE RECORDS SUMMARY | 2024-03-08 21:54 | XMS_ITS | Encounter Summary ---
Author Organization [facility] Address [address] [place] [address]. [place], [place] [address] [place] [address] Care Team Providers Care Director Of Academic Support Name Role Phone Unavailable Primary Care Provider Unavailabl e Encounter Details Date Type Department Care Team (Late st Contact Info) Description 08/31/1996 Abstract RONEY CONVERSION [place], [place] [id number] , Generic Conversion, Social History Tobacco Use [...]
--- OUTSIDE RECORDS SUMMARY | 2024-03-08 21:54 | XMS_ITS | Data Portability ---
Author Organization [facility] [place], Main Office Address [address] [place] [address] Care Team Providers Care Manager Client Name Role Phone NIVIA BROOKS Primary Care Provider NIVIA BROOKS Referring Provider Assessment Encounter Date Assessment Date Assessment LastModified by Organization Details LastModified Time 07/30/2022 07/30/2022 This note is dictated and transcribed by [employer]. Interpreter And Translator variances may occur. Despite proofreading, typographical errors may occur. mike Not available 07/30/2022 09:28:52 01/27/2024 01/27/2024 This note is dictated and transcribed by [employer]. Interpreter And Translator variances may occur. Despite proofreading, typographical errors may occur. Occasional wrong-word or 'fptsp-g-ubni' substitutions may have occurred due to the [...] Imaging XR, foot, 3 or more view 023 07/31/19 23 mike [facility] [place] [employer] [facility] [address], [place], [address], 09:51:24 XR, foot, 3 or more view 023 07/31/19 23 mike [facility] [place], [address], [place], [address], 3 09:51:24 XR, foot, 3 or more view 024 01/28/20 24 [email or web address] [facility] [place], [address], [place], [address], 4 09:37:50 XR, foot, 3 or more view 024 01/28/20 24 [email or web address] [facility] [place], [address], [place], [address], 4 09:37:50 Medication Orders None record ed. Patient TargetsNo targets recorded. Patient InstructionsNo instructions recorded. Reason for Referral None Reported. Results Created Date Observation Date Name Description Value Unit Range Abnormal Flag Note LastModifiedBy Organization Detail LastModifiedTime 07/31/19 23 XR, foot, 3 or more view No observ ation record ed. [email or web address] [facility] [place] [address], [place], [address], 07/30/2022 09:51:22 07/31/19 23 XR, foot, 3 or more view No observ ation record ed. [email or web address] [facility] [place] [address], [place], [address], 07/30/2022 09:51:16 01/28/20 24 XR, foot, 3 or more view No observ ation record ed. [email or web address] [facility] [place] [address], [place], [address], 01/28/2024 09:37:20 01/28/20 24 XR, foot, 3 or more view No observ ation record ed. mike [facility] [place] [address], [place], [address], 01/28/2024 09:37:46 Result Notes None recorded. Problems Name Problem SNOMED Code Status Onset Date Resolution Date Notes Provider Name and Address Organization Details Recorded Time Pain in both feet 78678844844631417 Active 2022 Lauri Jin DPM [address], [address], [place], [address], [employer] [facility] [employer] [facility] 09:29:05 Hammer toe 529814594 Active 2022 Lauri Jin DPM [address], [address], [place], [address], [employer] [facility] 09:29:17 Problem Notes None recorded. Procedures Surgical History Date Name Laterality Status Provider Name and Address Organization Details Recorded Time release of trigger finger completed Yamileth Olsen [facility] [employer] [facility] 07/30/2022 10:03:17 procedure on ulna completed Yamileth Olsen [facility] [employer] [facility] [employer] [facility] 07/30/2022 10:03:36 Carpal tunnel surgery completed Yamileth Olsen OR [employer] [facility] [employer] [facility] 07/30/2022 10:03:50 Rotator cuff surgery completed Yamileth Raúl [employer] [facility] [employer] [facility] 07/30/2022 10:03:56 excision of ganglion cyst completed Yamileth Raúl OR [employer] [facility] [employer] [facility] 07/30/2022 10:04:09 Imaging Results Imaging Date Name Status LastModified by Organiz ation Details LastModified Time 07/30/2022 XR, foot, 3 or more view completed mike [facility] [place] [address], [place], [address], 07/30/2022 09:51:22 07/30/2022 XR, foot, 3 or more view completed mike [facility] [place] [address], [place], [address], 07/30/2022 09:51:16 01/28/2024 XR, foot, 3 or more view completed [address] [facility] [place] [address], [place], [address], 01/28/2024 09:37:20 01/28/2024 XR, foot, 3 or more view completed [email or web address] [facility] [place] [address], [place], [address], 01/28/2024 09:37:46 Procedure Notes None recorded. Medical Equipment None Reported. Allergies Allergen ID Allergen Name Allergen Category Reaction Reaction Severity Criticality Documentation Date Start Date Code Code System Note Provider Name and Address Organization Details Recorded Time 73924 codeine medicatio n Not available Not available Not available 07/30/2022 2670 RxNorm Yamileth valencia [place] [facility] 10:00:40 Medications Name Sig Start Date Stop [...] Available No t Available Vitals Date Recorded Heart rate Respiratory rate Oxygen saturation Oxygen saturation in Arterial blood by Pulse oximetry Body height Body mass index (BMI) Body weight Systolic blood pressure Diastolic blood pressure Provider Name and Address Organization Details Last Updated DateTime 3 60 /min 14 /min 98 % 98 % 175.26 cm 17.7 kg/m2 78646.0 8 g 139 mm[Hg] 82 mm[Hg] Yamileth Olsen [facility] [employer] [facility] [employer] 3 09:23:51 Date Recorded Body height Body mass index (BMI) Body weight Heart rate Respiratory rate Body temperature Oxygen saturation Oxygen saturation in Arterial blood by Pulse oximetry Systolic blood pressure Diastolic blood pressure Provider Name and Address Organization Details Last Updated DateTime 3 175.26 cm 32.5 kg/m2 79960.3 2 g 65 /min 16 /min 97.4 [degF] 97 % 97 % 120 mm[Hg] 80 mm[Hg] Britni Burgess [facility] [employer] [facility] 3 11:31:15 Date Recorded Body height Body mass index (BMI) Body weight Heart rate Respiratory rate Oxygen saturation Oxygen saturation in Arterial blood by Pulse oximetry Systolic blood pressure Diastolic blood pressure Provider Name and Address Organization Details Last Updated DateTime 4 175.26 cm 32.5 kg/m2 91984.3 2 g 84 /min 14 /min 98 % 98 % 139 mm[Hg] 83 mm[Hg] Yamileth Olsen [facility] [employer] [facility] 16:16:45 Social History Question Answer Notes LastModified by Organizat ion Details LastModified Time Tobacco Smoking Status Former Smoker Yamileth Raúl annie [facility] [employer] [facility] 07/30/2022 10:03:08 What Is Your Level Of [...] SNOMED-CT Code Diagnosis ICD10 Code Diagnosis Note [id number] Lauri Jin DPM [facility] [place] [address] [place] [address] 07/30/2022 09:08:44 07/30/2022 10:29:12 Pain in both feet 6466746073 1829486 M79.671 M79.672 x-rays reviewed the patientFol low-up in 2 months Hammer toe 705788740 M20 .41 M20.42 educated on treatment optionsRec ommend conservati ve therapy at this time if continue pain and conservati ve therapy fails will discussed surgical optionsfol low-up 2-3mo [id number] Lauri Jin DPM [facility] [place] [address] [place] [address] 11/05/2022 11:22:31 11/19/2022 11:47:32 Hammer toe 105062537 M20.41 M20.42 educated on treatment optionsRec ommend conservati ve therapy at this time if continue pain and conservati ve therapy fails will discussed surgical optionsfol low-up 2-3mo Pain in both feet 687407 6941 3271909 M79.671 M79.672 x-rays reviewed the patientFol low-up in 2 months [id number] Lauri Jin DPM [facility] [place] [address] [place] [address] 01/27/2024 16:08:27 02/20/2024 16:41:26 Pain in both feet 3601426773 3998759 M79.671 M79.672 x-rays reviewed the patientFol low-up in February Hammer toe 015011567 M20 .41 M20.42 educated on treatment optionsCon tinue conservati ve therapyin February discuss surgical optionsfol low-up February Health Concerns Section Related Observation LastModified by Organization Detai ls LastModified Time None Recorded Concern Status LastModified by Organization Details LastModified Time None Recorded Advance Directives Directive None Recorded Payers Encounter Date Sequence Insurance Name Policy Number Policy Hilton Covered Member ID Hilton Member ID Guarantor Name 07/30/2022 1 [facility] ON OR AFTER 08/25/20 (MEDICAID REPLACEMENT - HMO) Ming Nieves [id number] Ming Nieves 11/05/2022 1 [facility] ON OR AFTER 08/25/20 (MEDICAID REPLACEMENT - HMO) Ming Nieves [id number] Ming Nieves 01/27/2024 1 [facility] - DOS ON OR AFTER 20 (MEDICAID REPLACEMENT - HMO) Ming Nieves [id number] Ming Nieves Notes Date Note Type Note Provider Name and Address Organization Details Recorded Time 07/30/2022 text/html . Patient is a 57-year-old male who presents to the office with complaints of bilateral foot pain. Patient states his pain is to his 2nd toes bilaterally. Patient states he has toe deformities which cause pain with walking and standing. Patient denies any wounds or infection. Patient denies any injury the foot. Patient states this has been ongoing for several months. Patient states he currently works at [employer] which he does significant amounts of walking daily. Patient denies any other complaints. Lauri Jin DPM [address] [employer], [place], [address], [employer] 07/30/2022 10:27:06 11/05/2022 text/html . Patient is a 57-year-old male who returns the office for follow-up on painful hammertoes. Patient states that he continues have pain worse to the right sub 2nd metatarsal head. Patient states that it continually feels like he is walking on a marble under the 2nd metatarsal head. Patient has pinpoint tenderness upon palpation of the 2nd met head. Patient denies any open wounds or infection. Patient states he has a hip but she will marijuana smoker and smokes proximally 5 joints a day. I explained that secondary to the patient's failure for conservative offloading he will need to become clean from marijuana in order to have surgery performed. Patient will continue conservative offloading for the next month and we will bring him back for testing. Lauri Jin DPM [address], [place], [address], [employer] 11/16/2022 12:24:27 01/27/2024 text/html . Patient is a 58-year-old [...] surgical clearance and approval. Lauri Jin DPM [address] [place] [address], [place], [address], [place] [facility] 01/28/2024 09:38:27
--- OUTSIDE RECORDS SUMMARY | 2024-03-08 21:54 | XMS_ITS | Encounter Summary ---
Author Organization [facility] Address [address] [place] [address]. [place] [address] [place] [address] Care Team Providers Care Obstetrics/Gynecology Nurse Name Role Phone Unavailable Primary Care Provider Unavailabl e Encounter Details Date Type Department Care Team (Late st Contact Info) Description 03/28/[address] [facility] [place] [place] [id number] Nathaniel Roque MD [address] [place] [address] [phone] Social History Tobacco Use Types Packs/Day Years [...]
--- OUTSIDE RECORDS SUMMARY | 2024-03-08 21:54 | XMS_ITS | Clinical Summary ---
Author Organization [facility] Address [address] [place] [address]. [place] [address] [place] [address] Care Team Providers Care Machine Splitter Name Role Phone Unavailable Primary Care Provider Unavailabl e Social History Tobacco Use Types Packs/Day Years Used Date Smoking Tobacco: Never Assessed Sex and Gender Information Value Date Recorded Sex Assigned at Not on file Legal Sex Male 7:10 PM CDT Gender Identity Not on file Sexual Orientation Not on file Plan of Treatment Health Maintenance Due Date Last Done Comments Colorectal Cancer Screening Colonoscopy (10 Years) 1965 Annual Physical 05/22/1966 Hepatitis C 05/22/1981 DTaP, Tdap and Td Vaccines ( 1 - Tdap) 05/22/1982 Zoster Vaccines (1 of 2) 05/22/2013 COVID-19 Vaccine ( - 2023-2 5 season) 2023 Influenza Adult (#1) 2023 RSV Immunization or 60+ Years (1 - 1-dose 75+ series) 05/22/2038 Meningococcal Vaccine Aged Out No santiago masood eligible based on patient's age to complete this topic Pneumococcal Vaccine: Pediat rics (0 to 5 Years) and At-Risk Patients (6 to 64 Years) Aged Out No longer eligible b ased on patient's age to complete this topic RSV Immunizations Under 20 Months Aged Out No longer eligible based on patient's age to complete this topic
--- OUTSIDE RECORDS SUMMARY | 2024-03-08 21:54 | XMS_ITS | Clinical Summary ---
Author Organization [facility] Address [address] [place] [id number] Phone [email or web address] Care Team Providers Care Director Of Program Management Name Role Phone Unavailable Primary Care Provider Unavailabl e Immunizations Name Administration Dates Next Due Influenza, (Afluria Fluarix Flulaval Fluzone) quad, PF (CVX-[id number]) 12/07/2021 Social History Tobacco Use Types Packs/Day Years Used Date Smoking Tobacco: Never Assessed Intimate Partner Violence Answer Date R ecorded Insults You Not on file 12/07/2021 Threatens You Not on file 12/07/2021 Screams at You Not on file 12/07/2021 Physically Hurt Not on file 12/07/2021 Intimate Partner Violence Score Not on file 12/07/2021 Stress Answer Date Recorded Stress in your Life Not on file 01/01/2024 Dealing with Stress 3 01/01/2024 Sex and Gender Information Value Date Recorded Sex Assigned at Not on file Legal Sex Male 12:36 PM CDT Gender Identity Not on file Sexual Orientation Not on file Plan of Treatment Health Maintenance Due Date Last Done Comments HIV Screening 1965 Hepatitis C Screening 1965 Annual Preventive Exam 05/22/1981 Hep B Infection Screening - Triple Screen 05/22/1981 Tetanus Diphtheria and Pertu ssis Immunization (1 - Tdap) 05/22/1982 Colorectal Cancer Screening 05/22/1993 Zoster Immunization (1 of 2) 05/22/2013 Covid-19 Immunization (1 - 2 season) 2023 Influenza Immunization (#1) 2023 12/07/2021 HIB Immunization Aged Out No longer e ligible based on patient's age to complete this topic HPV Immunization Aged Out No longer e ligible based on patient's age to complete this topic Hepatitis A Immunization Aged Out No longer eligible based on patient's age to complete this topic Hepatitis B Immunization Aged Out No longer eligible based on patient's age to complete this topic Pneumococcal: Ped (0 to 5 Yr s) and At-Risk Member (6 to 64 Yrs) Aged Out No longer e ligible based on patient's age to complete this topic Polio Immunization Aged Out No longer eligible based on patient's age to complete this topic
--- OUTSIDE RECORDS SUMMARY | 2024-03-09 00:13 | XMS_ITS | Continuity of Care Document ---
Author Organization [facility] up Address [address] [place] [address] Care Team Providers Care Network Analyst Name Role Phone ELTON Hunter Attending Provider [phone] MD Luis Garzon Primary Care Provider [phone] MD Luis Garzon Referring Provider MD Harry Vyas Attending Provider [phone] KAVITHA Gaytan Attending Provider [phone] KIKO Peñaloza Attending Provider [phone] UNKNOWN, DOCTOR Referring Provider Unavailabl e Care Teams Patient Care Team Team Status: Active Member Role Status Luana Garzon MD Primary Care Provider Active Visit Care Team Team Status: Inactive Member Role Status ELTON Evans Attending Provider Active Luis Garzon MD Referring Provider Active Visit Care Team Team Status: Inactive Member Role Status Luana Vyas MD Attending Provider Active Luis Garzon MD Primary Care Provider, Referring Provider Active Visit Care Team Team Status: Inactive Member Role Status Luana Gaytan NP Attending Provider Active Luis Garzon MD Referring Provider Active Visit Care Team Team Status: Inactive Member Role Status Luana Vyas MD Attending Provider Active Luis Garzon MD Referring Provider Active Visit Care Team Team Status: Inactive Member Role Status SARA Garcia Active Luis Garzon MD Primary Care Provider, Referring Provider Active Mckenna Gaytan NP Attending Provider Active Visit Care Team Team Status: Inactive Member Role Status ELTON Evans Attending Provider Active Liusangel Garzon MD Primary Care Provider, Referring Provider Active Visit Care Team Team Status: Inactive Member Role Status Dates Juliet Peñaloza PA-C Attending Provider Active DOCTOR UNKNOWN Referring Provider Active Visit Care Team Team Status: Inactive Member Role Status Dates Luis Garzon MD Primary Care Provider Active Harry Vyas MD Attending Provider Active Visit Care Team Team Status: Inactive Member Role Status Dates Luis Garzon MD Primary Care Provider Active ELTON Perez Attending Provider Active Visit Care Team Team Status: Inactive Member Role Status Dates Luis Garzon MD Primary Care Provider Active Mckenna Gaytan NP Attending Provider Active Chief Complaint and Reason for Visit Chief Complaint Hypertension trigger finger Hyperlipidemia Cramps of lower extremity Gastroeso Hypertension Lump/Mass Ganglion trigger finger right middle finger Postoperative (plastic surgery) Leg Pain Abnormal kidney function Hyperlipidemia 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 for 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 Anxiety BMI 29.0-29.9,adult GERD (gastroesophageal reflux disease) Hyperlipidemia Hypertension Insomnia Screening for prostate cancer Trigger finger of right hand Trigger finger of right hand Abnormal kidney function Hypertension Ganglion cyst Ganglion cyst Trigger finger of right hand Encounter for plastic surgery follow-up Hammer toes of both feet Hyperlipidemia Leg cramping Pain of lower leg Allergies, Adverse Reactions, Alerts Allergen Type Severity Reaction Last Updated Verified Status codeine Allergy Mild Gastrointestinal Upset Oc tober 2023 8:16am Yes Active Social History Smoking Status Status Start Date End Date Date of Observa tion Ex-smoker (finding) February 25, 2011 Oct demetris 2023 8:16am Observation Status Observation Response Date of Response Do You Feel Safe in your Home? Yes O ctober 2023 8:16am Has Lack of Trans Kept You F rom Med Appts or Getting Meds? No December 11, 2023 8:16am In Past 12 Months, Were You Worried Your Food Would Run Out? Never True December 11, 2023 8:16am What is Your Housing Situati on Today? I Have Housing December 11, 2023 8:16am Gender Identity (if Verbaliz ed by the Patient) Male December 11, 2023 8:16am Are You Worried That in Next 2 Mo, You Won't Have Housing? No December 11, 2023 8:16am Do You Have Trouble Paying Y our Heating Or Electricity Bill? No December 11, 2023 8:16am Do You Have Trouble Paying F or Medicines? No December 11, 2023 8:16am Are You Currently Unemployed and Looking for Work? No December 11, 2023 8:16am Highest Level of Education Completed High School Diploma/GED December 11, 2023 8:16am Do You Have Trouble With Childcare/Care of a Family Member? No December 11, 2023 8:16am alcohol intake former December 10 8:16am Substance use type marijuana December 11, 2023 8:16am Additional Data Assigned Sex Male Gender Identity Cisgender/Not transg mary ann (finding) Family History Relationship Condition Age at Onset Recorded Date/T jeramy Not Specified Family history of co lonic diverticulitis Unknown father Family history of co ngestive heart failure Unknown Hypertension Unknown Malignant neoplasm of jaw Unknown Congestive heart failure Unknown Unknown mother Carcinoma of colon Unknown Unknown sibling Cerebral aneurysm Unknown Unknown Malignant neoplasm of stomach Unknown sibling Malignant neoplasm of breast Unknown Problems Active Problems Medical Problem Onset Date Status Right hand pain Active Right hand pain Active Toe pain Active Insomnia Active Screening for prostate cancer Ac tive Change in vision Active Prepatellar bursitis Active Ganglion cyst Active Chronic pain Active Hearing deficit Active Trigger finger of right hand Act ashtyn Bilateral foot pain Active Anxiety Active Bursitis of right knee Active 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 Active Hearing aid consultation Active Heat stroke Active Hyperlipidemia Active Leg cramping Active Screening for lipid disorders Ac tive Snoring Active Tooth disease Active Hammer toes of both feet Active Patellar tendonitis Active BMI 29.0-29.9,adult Active Right knee pain Active Neck pain Active Abnormal kidney function Active GERD (gastroesophageal reflux disease) Active Chest pain Active Flat foot [pes planus] (acquired), unspecified f oot Active Hypertension Active Numbness and tingling of both feet Active Hidradenitis suppurativa Active Inactive/Resolved Problems Medical Problem Onset Date Status Cerumen impaction Resolved Metatarsalgia of both feet Resol el Ankle sprain and strain Resolved Contusion of right thumb Resolve d Medications Medication Status Dose Units Route Directions Qty Days St art Date End Date Instructions Amlodipine Active 10 MG PO DAILY July 292023 11:14am Rosuvastatin (Crestor) 20 mg tablet Active 20 MG PO DAILY July 30, 2023 11:20am Pantoprazole Active 20 MG PO Every D ay At Bedtime July 30, 2023 11:20am Hydrochlorothi azide Active 12.5 MG PO DAILY October 15, 2023 12:00am Gabapentin Active 100 MG PO TWICE A DAY A ugust 2023 3:01pm 100mg in am and 300mg at hs Duloxetine Active 60 MG PO BEDTIME mb2023 10:58am take one tablet at bedtime. 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 Lot Number Vaccine Information Statement (VIS) Detail SARS-COV-2 (COVID-19) Pfizer July 24, 2020 SARS-COV-2 (COVID-19) Pfizer August 14, 2020 SARS-COV-2 (COVID-19) Pfizer March 12, 2021 Medical Equipment Device Date Implanted Device Details INTERNALBRACE HAND/WRIST KIT May 18, 2021 Procedures Procedure Date Performed Status Trigger Finger Release (Right) October 23, 2023 2:00pm completed Relevant Diagnostic Tests and/or Laboratory Data Laboratory Results Test Date/Time Result Interpretation Reference Range Result Comment Performing Site White Blood Count December 11, 2023 9:13am 6.6 K/mm3 4.5-10.0 [facility] [id number] [address] [place] [address] 68330 Red Blood Count December 11, 2023 9:13am 5.12 M/mm3 4.6-6.20 [facility] [id number] [address] [place] [address] 15585 Hemoglobin December 11, 2023 9:13am 15.8 g/dL 14.0-18.0 [facility] [id number] [address] [place] [address] 33020 Hematocrit December 11, 2023 9:13am 46.7 % 42.0-52.0 [facility] [id number] [address] [place] [address] 45946 Mean Corpuscular Volume December 11, 2023 9:13am 91.2 fL 80-100 [facility] [id number] [address] [place] [address] 16601 Mean Corpuscular Hemoglobin December 11, 2023 9:13am 30.9 pg 26-34 [facility] [id number] [address] [place] [address] 91271 Mean Corpuscular Hemoglobin Concent December 11, 2023 9:13am 33.8 g/dL 32-36 [facility] [id number] [address] [place] [address] 42500 Red Cell Distribution Width December 11, 2023 9:13am 12.8 % 11.5-14.5 [facility] [id number] [address] [place] [address] 73946 Platelet Count December 11, 2023 9:13am 255 k/mm3 150-375 [facility] [id number] [address] [place] [address] 54268 Mean Platelet Volume December 11, 2023 9:13am 8.9 fL 7.4-10.4 [facility] [id number] [address] [place] [address] 31356 Nucleated Red Blood Cells % December 11, 2023 9:13am 0.0 % 0.0-0.2 [facility] [id number] [address] [place] [address] 13141 Immature Granulocyte % (Auto) December 11, 2023 9:13am 0.3 % 0-0.5 [facility] [id number] [address] [place] [address] 49377 Neutrophils (%) (Auto) December 11, 2023 9:13am 72.7 % 45.5-73.1 [facility] [id number] [address] [place] [address] 12857 Lymphocytes (%) (Auto) December 11, 2023 9:13am 14.2 % Below low normal 18.3-44.2 [facility] [id number] [address] [place] [address] 71934 Monocytes (%) (Auto) December 11, 2023 9:13am 8.4 % 2.6-8.5 [facility] [id number] [address] [place] [address] 52936 Eosinophils (%) (Auto) December 11, 2023 9:13am 3.2 % 0-4.4 [facility] [id number] [address] [place] [address] 60834 Basophils (%) (Auto) December 11, 2023 9:13am 1.2 % 0.2-1.2 [facility] [id number] [address] [place] [address] 46845 Nucleated RBC Absolute Count (auto) December 11, 2023 9:13am 0.000 K/mm3 0.0-0.012 [facility] [id number] [address] [place], [place] [address] Absolute Immature Granulocyte (auto December 11, 2023 9:13am 0.02 K/mm3 0.00-0.031 [facility] [id number] [address] [place] [address] 18763 Absolute Neutrophils (auto) December 11, 2023 9:13am 4.8 K/mm3 1.3-6.7 [facility] [id number] [address] [place] [address] 29680 Lymphocytes # (Auto) December 11, 2023 9:13am 0.93 K/mm3 0.9-3.2 [facility] [id number] [address] [place] [address] 58629 Monocytes # (Auto) December 11, 2023 9:13am 0.6 K/mm3 0.1-0.6 [facility] [id number] [address] [place] [address] 26663 Eosinophils # (Auto) December 11, 2023 9:13am 0.2 K/mm3 0-0.3 [facility] [id number] [address] [place] [address] 57959 Basophils # (Auto) December 11, 2023 9:13am 0.1 K/mm3 0.0-0.1 [facility] [id number] [address] [place] [address] 09131 Sodium Level September 02, 2023 9:01am 139 mmol/L 137-145 [facility] [id number] [address] [place] [address] 20857 Sodium Level December 11, 2023 9:13am 137 mmol/L 137-145 [facility] [id number] [address] [place] [address] 43119 Potassium Level September 02, 2023 9:01am 4.1 mmol/L 3.4-5.0 [facility] [id number] [address] [place] [address] 33943 Potassium Level December 11, 2023 9:13am 3.8 mmol/L 3.4-5.0 [facility] [id number] [address] [address] Chloride Level September 02, 2023 9:01am 104 mmol/L 98-107 [facility] [id number] [address] [address] Chloride Level December 11, 2023 9:13am 105 mmol/L 98-107 [facility] [id number] [address] [address] Carbon Dioxide Level September 02, 2023 9:01am 28 mmol/L [facility] [id number] [address] [address] Carbon Dioxide Level December 11, 2023 9:13am 23 mmol/L [facility] [id number] [address] [address] Anion Gap September 02, 2023 9:01am 7 mmol/L 06-06 [facility] [id number] [address] [address] Anion Gap December 11, 2023 9:13am 9 mmol/L 06-06 [facility] [id number] [address] [address] Blood Urea Nitrogen September 02, 2023 9:01am 30 mg/dL Above high normal 11-14 [facility] [id number] [address] [address] Blood Urea Nitrogen December 11, 2023 9:13am 29 mg/dL Above high normal 11-14 [facility] [id number] [address] [address] Creatinine September 02, 2023 9:01am 0.70 mg/dL 0.7-1.3 [facility] [id number] [address] [address] Creatinine December 11, 2023 9:13am 0.60 mg/dL Below low normal 0.7-1.3 [facility] [id number] [address] [address] Estimat Glomerular Filtration Rate September 02, 2023 9:01am > 60 >59 > OR = 60 ml/min/1.73 square metersThe MDRD formula used to calculate the eGFR result has not been validated in patients > 70 years of age. [facility] [id number] [address] [address] Estimat Glomerular Filtration Rate December 11, 2023 9:13am > 60 >59 > OR = 60 ml/min/1.73 square metersThe MDRD formula used to calculate the eGFR result has not been validated in patients > 70 years of age. [facility] [id number] [address] [place] [address] 30935 Estimated Creatinine Clearance Calc September 02, 2023 9:01am Not Reportable [facility] [id number] [address] [place] [address] 38985 Estimated Creatinine Clearance Calc December 11, 2023 9:13am Not Reportable [facility] [id number] [address] [place] [address] 11989 Glucose Level September 02, 2023 9:01am 106 mg/dL 65-110 [facility] [id number] [address] [place] [address] 85946 Glucose Level December 11, 2023 9:13am 104 mg/dL 65-110 [facility] [id number] [address] [place] [address] 10079 Calcium Level September 02, 2023 9:01am 9.4 mg/dL 8.4-10.2 [facility] [id number] [address] [place] [address] 75078 Calcium Level December 11, 2023 9:13am 9.4 mg/dL 8.4-10.2 [facility] [id number] [address] [place] [address] 90658 Magnesium Level September 02, 2023 9:01am 2.0 mg/dL 1.6-2.3 [facility] [id number] [address] [place] [address] 00615 Total Bilirubin September 02, 2023 9:01am 0.9 mg/dL 0.2-1.3 [facility] [id number] [address] [place] [address] 88106 Aspartate Amino Transf (AST/SGOT) September 02, 2023 9:01am 20 U/L 17-59 [facility] [id number] [address] [place] [address] 94475 Alanine Aminotransfer ase (ALT/SGPT) September 02, 2023 9:01am 15 U/L 6-50 [facility] [id number] [address] [place] [address] 75669 Total Creatine Kinase September 02, 2023 9:01am 81 U/L 55-170 [facility] [id number] [address] [place] [address] 15785 Total Creatine Kinase December 11, 2023 9:13am 105 U/L 55-170 [facility] [id number] [address] [address] Total Protein September 02, 2023 9:01am 7.0 g/dL 6.3-8.2 [facility] [id number] [address] [address] Albumin September 02, 2023 9:01am 4.6 g/dL 3.5-5.1 [facility] [id number] [facility] [address] Triglycerides Level September 02, 2023 9:01am 103 mg/dL <150 [facility] [id number] [address] [address] Triglycerides Level December 11, 2023 9:13am 116 mg/dL <150 [facility] [id number] [facility] [address] [address] Cholesterol Level September 02, 2023 9:01am 129 mg/dL 0-200 [facility] [id number] [facility] [address] [address] Cholesterol Level December 11, 2023 9:13am 125 mg/dL 0-200 [facility] [id number] [facility] [address] [address] LDL Cholesterol Direct September 02, 2023 9:01am 71 mg/dL <130 mg/dl [id number] 9 mg/dl Borderline High Risk >160 mg/dl High Risk [facility] [id number] [facility] [address] [address] LDL Cholesterol Direct December 11, 2023 9:13am 49 mg/dL <130 mg/dl [id number] 9 mg/dl Borderline High Risk >160 mg/dl High Risk [facility] [id number] [facility] [address] [address] HDL Cholesterol Direct September 02, 2023 9:01am 45 mg/dL Expected Range > 35 mg/dl [facility] [id number] [facility] [address] [address] HDL Cholesterol Direct December 11, 2023 9:13am 43 mg/dL Expected Range > 35 mg/dl [facility] [id number] [facility] [address] [address] Alkaline Phosphatase September 02, 2023 9:01am 63 U/L 38-126 [facility] [id number] [address] [address] Prostate Specific Antigen September 02, 2023 9:01am 1.1 ng/mL <4.0 [employer] 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 [facility] [id number] [address] [place] [address] 65003 Vitamin B12 Level December 11, 2023 9:13am 322.0 pg/mL 239-931 Although the result is within normal reference ranges, a B12 deficiency cannot be excluded at levels between 239 - 350. [facility] [id number] [address] [place] [address] 29763 Folate December 11, 2023 9:13am 4.9 ng/mL 2.76-20 [facility] [id number] [address] [place] [address] 78279 Thyroid Stimulating Hormone (TSH) September 02, 2023 9:01am 1.410 [iU]/mL 0.465-4.68 0 [facility] [id number] [address] [place], [place] [address] Vital Signs Vital Reading Result Reference Range Collection Date/Time Height 69 [in_i] July 30, 2023 9:12am Weight 91.62 kg July 30, 2023 9:12am Heart Rate 78 /min 60-100 July 30, 2023 9:12am Oxygen saturation by Pulse oximetry 99 % 90-100 July 30, 2023 9:12a m BP Systolic 158 mm[Hg] 100-140 July 30, 2023 11:05am BP Diastolic 88 mm[Hg] 60-90 July 30, 2023 11:05am BMI (Body Mass Index) 29.8 kg/m2 July 292023 9:12am Height 69 [in_i] August 26, 2023 1:31pm Weight 90.71 kg August 26, 2023 1:31pm BMI (Body Mass Index) 29.5 kg/m2 August 252023 1:31pm Height 69 [in_i] September 03, 2023 7:45am Weight 88.90 kg September 03, 2023 7:45am Heart Rate 76 /min 60-100 September 03, 2023 7:45am Oxygen saturation by Pulse oximetry 98 % 90-100 September 03, 2023 7:45a m BP Systolic 118 mm[Hg] 100-140 September 03, 2023 7:45am BP Diastolic 70 mm[Hg] 60-90 September 03, 2023 7:45am BMI (Body Mass Index) 28.9 kg/m2 September 022023 7:45am Height 69 [in_i] September 25 8:13am Weight 90.71 kg September 25 8:13am Heart Rate 66 /min 60-100 September 25 8:13am Oxygen saturation by Pulse oximetry 98 % 90-100 September 26, 2023 8:1 3am BP Systolic 138 mm[Hg] 100-140 September 25 8:13am BP Diastolic 80 mm[Hg] 60-90 September 25 8:13am BMI (Body Mass Index) 29.5 kg/m2 September 26, 2023 8:13am Height 69 [in_i] October 07 9:27am Weight 94.80 kg October 07 9:27am BMI (Body Mass Index) 30.8 kg/m2 October 08, 2023 9:27am Height 69 [in_i] October 14 3:22pm Weight 92.40 kg October 22 12:33pm Body Temperature 97.2 [degF] 97.6-99.6 September 12:02pm Heart Rate 54 /min 60-100 October 22 2:25pm Respiratory rate 15 /min -September 2:25pm Oxygen saturation by Pulse oximetry 98 % 90-100 October 23, 2023 1: 35pm BP Systolic 152 mm[Hg] 100-140 October 22 2:25pm BP Diastolic 80 mm[Hg] 60-90 October 22 2:25pm BMI (Body Mass Index) 30.2 kg/m2 October 15, 2023 3:22pm Height 69 [in_i] November 11, 2023 2:54pm Weight 92.98 kg November 11, 2023 2:54pm BMI (Body Mass Index) 30.2 kg/m2 2023 2:54pm Height 69 [in_i] December 10, 2 024 7:40am Weight 92.98 kg December 10, 2 024 7:40am Heart Rate 60 /min 60-100 December 10 024 7:40am Oxygen saturation by Pulse oximetry 97 % 90-100 December 11, 2023 7 :40am BP Systolic 138 mm[Hg] 100-140 December 10, 024 7:40am BP Diastolic 88 mm[Hg] 60-90 December 10, 024 7:40am BMI (Body Mass Index) 30.2 kg/m2 Octobe r 2023 7:40am Insurance Providers Guarantor Ming Nieves Address [address] [place] [phone] Contact Info. Home Phone: Payer Policy Id Coverage Id Subscriber's Name Subscriber Id Effective Date Expiration Date [place] Medicaid [id number] Ming Nieves [id number] [place] [id number] Ming Nieves [id number] Self Pay Self N/A [id number] Ming Nieves [id number] Encounters Encounter Location(s) Arrival/Admit Date Discharge/Depart Date Provider(s) Departed Physician/Prov ider Office Visit [facility] July 30, 2023 10:50am July 30, 2023 11:25am Kathryn Hunter PA-C Departed Physician/Prov ider Office Visit [facility] August 26, 2023 1:22pm August 26, 2023 1:38pm Harry Vyas MD [facility] September 02, 2023 8:54am September 02, 2023 8:55am Kathryn Hunter PA-C Departed Physician/Prov ider Office Visit [facility] September 03, 2023 8:44am September 03, 2023 9:17am Kathryn Hunter PA-C Departed Physician/Prov ider Office Visit [facility] September 26, 2023 10:38am September 26, 2023 10:59am Mckenna Gaytan Departed Physician/Prov ider Office Visit [facility] October 08, 2023 9:12am October 08, 2023 9:33am Harry Vyas MD Departed Surgical Day Care [facility] October 23, 2023 1:23am October 23, 2023 2:40pm Harry Vyas MD Departed Physician/Prov ider Office Visit [facility] November 11, 2023 2:48pm November 11, 2023 3:11pm Juliet Peñaloza PA-C Departed Physician/Prov ider Office Visit [facility] December 11, 2023 8:10am December 11, 2023 8:59am Mckenna Gaytan Departed Clinical [facility] December 11, 2023 8:55am December 11, 2023 8:56am Mckenna Gaytan Recent Diagnosis Onset Date Anxiety BMI 29.0-29.9,adult GERD (gastroesophageal reflux disease) Hyperlipidemia Hypertension Insomnia Screening for prostate cancer Trigger finger of right hand Trigger finger of right hand Abnormal kidney function Hypertension Ganglion cyst Ganglion cyst Trigger finger of right hand Encounter for plastic surgery follow-up Hammer toes of both feet Hyperlipidemia Leg cramping Pain of lower leg Mental Status Observation Response Date Recorded patient oriented x3 Yes September 02 9:09am patient oriented x3 Yes September 26, 2023 12:34pm patient oriented x3 Yes November 8:57am patient oriented x3 Yes July 29 11:12am patient oriented x3 Yes November 102023 3:13pm Assessments Diagnosis Onset Date Resolution Status Anxiety acute BMI 29.0-29.9,adult acute GERD (gastroesophageal reflux disease) acute Hyperlipidemia acute Hypertension acute Insomnia acute Screening for prostate cancer acute Trigger finger of right hand acute Trigger finger of right hand acute Abnormal kidney function acu te Hypertension acute Ganglion cyst acute Ganglion cyst acute Trigger finger of right hand acute Encounter for plastic surgery follow-up noneactive Hammer toes of both feet acu te Hyperlipidemia acute Leg cramping acute Pain of lower leg noneactive Plan of Treatment Author Kathryn [facility] Authored September 04, 2023 7:03 am Has been off all BP meds jan due to lack of insurance. Has been feeling well. Working at [employer] and very active. Has lost weight. Due for labs. BP elevated 09/03/23: We d/c'd HCTZ with BUN of 30. He states he drinks plenty of water. BP controlled on norvasc. Feels great. Will cont on same regimen and f/u in 6mo See above. Will repeat BMP in one month Author Harry Bazzi [facility] Authored August 26, 2023 1:39p m 58yo male with right middle trigger finger reviewed impression and Dx and conservative and surgical treatment options discussed surgery, post-op expectations and risks. Reviewed procedure, post-op expectations and risks including but not limited to bleeding, infection, injury to tendon/nerve/vessel, decreased hand function, stiffness, RSD, no change or worsening of symptoms. Plan: 1) will plan on R MF a1 maxwell release Author Mckenna Gaytan [facility] Authored September 26, 2023 12: 47pm Trigger finger surgery (L felix nd) 10/[address] Vyas Now a ganglion cyst has popped up on same wrist. He has had a ganglion cyst on the top of this hand in the past, he hit with a hard-cover book and it went away This is not his dominant hand He will call Lilliam's office today and update them that this is a new finding and its impacting his already existing trigger finger and stiffness to see if they can possibly address this at his upcoming surgery Author Harry Vyas [facility] Authored October 08, 2023 9: 37am 58yo male with R MF trigger finger and new right volar wrist mass likley ganglion reviweed impression and suspected Dx and option of injection/aspiration ganglion vs concurrent excision when doing trigger release discussed procedure, post-op expectations and risks. Reviewed procedure, post-op expectations and risks including but not limited to bleeding, infection, injury to tendon/nerve/vessel, decreased hand function, stiffness, RSD, no change or worsening of symptoms, recurrence Plan: 1) will plan on right volar wrist ganlgion exciison at same time as R MFa1 maxwell release Author Mckenna Gaytan [facility] Authored December 11, 2023 9 :20am Pain in both legs and thinks it from his hammer toes Saw a form press operator 2-3 yrs ago who told him to put pads on them and it didnt help When legs cramping he notices his toes are all curled up He felt paralyzed, like 2 strong Gurvinder horses He wants to schedule surgery for his toes after Xmas because he is Mel[place] :) Wears inserts in shoes for now and is on meloxicam and duloxetine Plan to check labs to rule out vitamin deficiencies and assess CK level given recent start to statin Referral placed for podiatry He has been losing weight, drinking plenty of water Reports Crestor is new as of this summer Plan to check CK and lipid panel see above see above Author Kathryn Hunter [facility] Authored August 01, 2023 4:05p m Has been off all BP meds sin jan due to lack of insurance. Has been feeling well. Working at [employer] and very active. Has lost weight. Due for labs. BP elevated Will restart HCTZ and norvasc. Labs ordered. Will watch caffeine and salt. Pt instructed to watch fat in diet and exercise 4-5x per week for cardiovascular benefits. Will restart statin and check labs. Will refill Omeprazole Will restart cymbalta. Will refer to plastic surgeon Author Juliet Peñaloza [facility] Authored November 11, 2023 3:13pm 58yo male 3 weeks s/p right MF a1 maxwell release and right volar wrist ganglion cyst excision healing well without recurrent cyst. reviewed impression and healing expectations, reviewed signs/symtpoms of concern. reviewed possible recurrence or new similar lesions. reviewed scar management. pt voiced understanding and agreement. Plan 1) scar management, avoid strenuous R wrist activity x 2 weeks to help decrease possible recurrence 2) follow up 1 month, may be phone update as preferred by pt Future Tests Future scheduled test information is unavailable Pending Tests Test Name Ordered Date Scheduled Date Vitamin B6 Level December 11, 2023 9:13am Vitamin B6 December 11, 2023 8:37am Octobe r 2023 9:13am Future Visits Future appointment information is unavailable Referrals to Other Providers Reason for Referral Referral Start Date Provider Provider Contact Information Provider Address M21.40 - Flat foot [pes planus] (acquired), unspecified foot,M79.676 - Pain in unspecified toe(s),M20.41 - Other hammer toe(s) (acquired), right foot,M20.42 - Other hammer toe(s) (acquired), left foot December 11, 2023 Bharath Montenegro DPM Work Phone: [address] [facility] [address] M65.30 - Trigger finger, unspecified finger July 30, 2023 Harry Vyas MD Work Phone: [place] [employer] [address], [address] [facility] [address] Future Procedures Procedure Name Ordered Date Scheduled Date Outpatient Surgery Discharge October 23, 2023 1 :32pm October 23, 2023 12:00am Intraoperative Tourniquet, Place October 22 1:02pm October 23, 2023 1:02pm Future Medications Future medication information is unavailable Patient Instructions Hypertension (AC) Anxiety (AC) Hypertension (AC) Goals Acute Goals Author Authored Date Pt will Experience Minimal A nxiety Patient will Demonstrate/Verbalize Minimal Anxiety Prior to Surgery 1. [place] Patient by Explaining Room & Equipment 2. Allow Patient to Verbalize and Answer Questions 3. Monitor Patient Comfort i.e. Provide Warm Blankets 4. Indicate Special Needs r/t Development Age 5. Provide Emotional Support and Reassuring Atmosphere 6. Describe Sequence of Events During Pre-Op Period 7. Confirm Written and Verbal Consent for Operative Procedure [facility] October 23, 2023 12:33pm Demonstrate/Verbalize Minima l Pain Pt will Demonstrate/Verbalize Minimal Pain to Surgical Intervention 1. Assess Location, Duration, and Intensity of Pain 2. Change Position as Allowed 3. Use Therapeutic Communication 4. Relay Complaints of Pain to Primary Nurse Veda [facility] October 23, 2023 2:42pm Progress Note Author Mckenna Gaytan [facility] December 11, 2023 9:20am Note Date/Time December 11, 2023 8 :14am [facility] [address] [place] [address] Mckenna Gaytan NP Family Practice Office Visit Report Signed Patient: Ming Nieves MR#: [id number] : 1965 Acct:[id number] Age: 58 Date of Service: 12/11/23 cc: ~ HPI Pain of lower leg Details: Pain in both legs and thinks it from his hammer toes Saw a form press operator 2-3 yrs ago who told him to put pads on them and it didnt help When legs cramping he notices his toes are all curled up He felt paralyzed, like 2 strong Gurvinder horses He has been losing weight, drinking plenty of water Reports Jh is new as of this summer He wants to schedule surgery for his toes after Xmas because he is Mel[place] :) Wears inserts in shoes for now and is on meloxicam and duloxetine HPI Comments Details: Pt is here today for leg pain. Cramping. After work. 2-3 hours later legs hurt so bad, thinks its from his feet. He has hammertoes on 9-10 toes. Pt is due for a wellness exam. Pt is Covid vaccinated. Medications have been reconciled. [facility] Medical History Acute pain of left knee Caldera's esophagus with dysplasia, unspecified Chronic pain Dietary counseling and surveillance (09/01/18) Diverticulosis Diverticulosis of intestine, part unspecified, without perforation or abscess with bleeding Dysfunction of both eustachian tubes Elevated blood pressure reading Encounter for screening for lipoid disorders Encounter for screening for malignant neoplasm of colon Encounter for screening for malignant neoplasm of prostate Finger pain, left Foot pain, left Hepatic steatosis Hydrocele of testis IBS (irritable bowel syndrome) Kidney cysts Kidney stone Mallet finger of left finger(s) Marijuana use Neck pain Patellar tendonitis Pelvic pain in male Personal history of urinary calculi Prepatellar bursitis Prostate calculus Right knee pain Screening for lipid disorders Screening for prostate cancer Splinter in skin Thrombosed external hemorrhoid 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 Trigger index finger of left hand Surgical History H/O thumb surgery History of extraction of renal calculus Family History Father Family history of congestive heart failure Hypertension Cancer of jaw CHF (congestive heart failure) Mother Carcinoma of colon Sibling Brain aneurysm Stomach cancer Sibling , stomach cancer Breast cancer Other Family history of colonic diverticulitis Social History Social History: Caffeine-coffee Smoking packs per day: 2 Smoking cigarettes per day: 40.0 Years smoked: 20 Smoking pack-years: 40.00 Smoking status: Former smoker Tobacco type: cigarettes Smokeless tobacco user: other Second hand tobacco smoke exposure: Yes Smoking end date: 02/25/11 Alcohol intake: former Substance use: current Substance use type: marijuana Other substance usage details: DAILY USE Do You Feel Safe in your Home?: Yes Lack of Transportation: No Lack of Food: Never True Current Housing: I Have Housing Concerned About Future Housing: No Difficulty Paying Gas/Electric Bills: No Difficulty Paying for Meds: No Currently Unemployed: No Education: High School Diploma/GED Difficulty w/ Childcare or Family Care: No Living arrangements: with family Occupation/Education: occupation Additional occupation/education comments: Home [employer] Gender identity (if verbalized by the patient): Male Spiritual care concerns: No Intake Vital Signs 12/11/23 07:40 Height 1.75 m Height (Inches) 69 Weight 92.986 kg Weight (Lbs) 205 lbs., 0 oz. BMI 30.2 BP 138/88 Blood Pressure Location Lt brachial Position Sitting Pulse 60 Pulse Source Monitor Pulse Oximetry (%) 97 Oxygen Delivery Method Room Air Visit Reasons: Leg Pain Systolic blood pressure: 3075F SBP 130 - 139 Diastolic blood pressure: 3079F DBP 80-89 Block Layer Required: No Patient???s sex assigned at : Male Is patient in pain?: No Patient receiving dialysis services?: No Has colon screening been performed?: No Influenza vaccine: Incomplete Is patient in hospice?: No Allergies/Adverse Reactions codeine Allergy (Mild, Verified 12/11/23 08:16) Gastrointestinal Upset Medication Reconciliation amlodipine 10 mg tablet 10 mg PO DAILY #90 tabs 07/30/23 [Rx Confirmed 12/11/23] pantoprazole 20 mg tablet,delayed release 20 mg PO QHS #90 tabs 07/30/23 [Rx Confirmed 12/11/23] rosuvastatin 20 mg tablet (Crestor) 20 mg PO DAILY #90 tabs 07/30/23 [Rx Confirmed 12/11/23] gabapentin 100 mg capsule 100 mg PO BID 10/15/23 [History Confirmed 12/11/23] hydrochlorothiazide 12.5 mg tablet 12.5 mg PO DAILY 10/15/23 [History Confirmed 12/11/23] duloxetine 60 mg capsule,delayed release 60 mg PO HS #90 caps 10/29/23 [Rx Confirmed 12/11/23] meloxicam 15 mg tablet 15 mg PO DAILY #30 tabs 10/31/23 [Rx Confirmed 12/11/23] Do you need a note to return to daycare/school/sports/work: No Preferred pharmacy verified?: Yes Preferred laboratory: [facility] Pre-Planning preparation?: Yes Review of Systems Const All systems reviewed & are unremarkable except as noted in HPI and below Denies headache(s) ENT Denies headache(s) Card Denies chest pain and Denies dyspnea Resp Denies dyspnea Musc Reports as per HPI, Reports muscle cramps, Reports numbness, Reports stiffness and Reports tingling Neuro Denies headache(s), Reports numbness and Reports tingling Exam Exam Const General: healthy appearing and no acute distress Orientation/Consciousness: patient oriented x3 Chest Palpation/Inspection: normal inspection of the chest Resp Effort/Inspection: normal respiratory effort and no respiratory distress Auscultation: clear to auscultation bilaterally Cardio Rate: Yes regular rate Rhythm: regular rhythm Heart Sounds: Yes normal heart sounds and No Murmur heart sound present Skin General: normal color Extrem General: Yes no clubbing, cyanosis or edema, No no calf tenderness and Yes normal gait Other: bilateral toe abnormalities Psych Insight: Good insight present (Psych) Judgement: Good judgement present (Psych) Assessment & Plan (1) Pain of lower leg: Code(s): M79.669 - Pain in unspecified lower leg Plan: Pain in both legs and thinks it from his hammer toes Saw a form press operator 2-3 yrs ago who told him to put pads on them and it didnt help When legs cramping he notices his toes are all curled up He felt paralyzed, like 2 strong Gurvinder horses He wants to schedule surgery for his toes after Xmas because he is [place] :) Wears inserts in shoes for now and is on meloxicam and duloxetine Plan to check labs to rule out vitamin deficiencies and assess CK level given recent start to statin Referral placed for podiatry (2) Hyperlipidemia: Code(s): E78.5 - Hyperlipidemia, unspecified Category: Medical Qualifiers: Hyperlipidemia type: unspecified Qualified Code(s): E78.5 - Hyperlipidemia, unspecified Plan: He has been losing weight, drinking plenty of water Reports Michaelor is new as of this summer Plan to check CK and lipid panel (3) Leg cramping: Code(s): R25.2 - Cramp and spasm Category: Medical Plan: see above (4) Hammer toes of both feet: Code(s): M20.41 - Other hammer toe(s) (acquired), right foot; M20.42 - Other hammer toe(s) (acquired), left foot Category: Medical Plan: see above Orders: Orders Vitamin B12 and Folic Acid Today R20.2 - Paresthesia of skin Creatine Kinase Today R25.2 - Cramp and spasm Vitamin B6 Today R20.0 - Anesthesia of skin, R20.2 - Paresthesia of skin Complete Blood Count with Diff Today Z13.0 - Encounter for screening for diseases of the blood and blood-forming organs and certain disorders involving the immune mechanism Basic Metabolic Panel Today N28.9 - Disorder of kidney and ureter, unspecified Lipid Panel Today E78.5 - Hyperlipidemia, unspecified Referrals Podiatry Referral M20.41 - Other hammer toe(s) (acquired), right foot, M20.42 - Other hammer toe(s) (acquired), left foot, M21.40 - Flat foot [pes planus] (acquired), unspecified foot, M79.676 - Pain in unspecified toe(s) Medications: Discontinued tramadol Discontinued Reason: .Provider Order 50 mg PO Q6H PRN 12 tabs 0RF pain M65.30 - Trigger finger, unspecified finger, M67.40 - Ganglion, unspecified site Quality PHQ-2: Total score: 0 Depression screening results: Negative Smoking Status: Former smoker Patient receiving dialysis services?: No Questionnaire PHQ-2/PHQ-9 PHQ-2 Over the last 2 weeks, how often have you been bothered by any of the following problems? 1. Little interest or pleasure in doing things: not at all 2. Feeling down, depressed, or hopeless: not at all Total score: 0 Depression screening results: Negative Depression screening last done: 12/11/23 Social Determinants of Health How confident are you filling out medical forms?: Very confident In the Last 12 Months, Have You Received Assistance From an Organization or Program to Help You With Any of the Following?: None Would You Like Information Today About Any of the Following?: None This report may have been done utilizing a voice recognition system. Attempts have been made to correct errors. However, there may be uncorrected grammatical,spelling, and recognition errors present. Documented By: Mckenna Gaytan APN 12/11/23 0740 Signed By: <Electronically signed by Mckenna Gaytan> 12/11/23 0940
--- OUTSIDE RECORDS SUMMARY | 2024-03-09 00:13 | XMS_ITS | Continuity of Care Document ---
Author Organization [facility] up Address [address] [place] [address] Care Team Providers Care Concrete Gun Operator Name Role Phone ELTON Hunter Attending Provider MD Luis Garzon Primary Care Provider [phone] MD Luis Garozn Referring Provider [phone] MD Harry Vyas Attending Provider KAVITHA Gaytan Attending Provider [phone] KIKO Peñaloza Attending Provider UNKNOWN, DOCTOR Referring Provider Unavailabl e Care [...] Active Luis Garzon MD Referring Provider Active Patient Care Team Team Status: Inactive Member Role Status SARA Garcia Active Luis Garzon MD Primary Care Provider, Referring Provider Active Mckenna Gaytan NP Attending Provider Active Visit Care Team Team Status: Inactive Member Role Status ELTON Evans Attending Provider Active Luisangel Garzon MD Primary Care Provider, Referring Provider [...] Provider Active ELTON Perez Attending Provider Active Patient Care Team Team Status: Active Member Role Status Dates Luis Garzon MD Primary Care Provider Active Mckenna Gaytan NP Attending Provider Active Chief Complaint and Reason for Visit Chief Complaint Hypertension trigger finger Hyperlipidemia Cramps of lower extremity Gastroeso Hypertension Lump/Mass Ganglion trigger finger right middle finger Postoperative (plastic surgery) Leg Pain Abnormal kidney function Hyperlipidemia 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 for 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 Anxiety BMI 29.0-29.9,adult GERD (gastroesophageal reflux disease) Hyperlipidemia Hypertension Insomnia Screening for prostate cancer Trigger finger of right hand Trigger finger of right hand Abnormal kidney function Hypertension Ganglion cyst Ganglion cyst Trigger finger of right hand Encounter for plastic surgery follow-up Pain of lower leg Allergies, Adverse Reactions, [...] Ac tive Snoring Active Tooth disease Active Patellar tendonitis Active BMI 29.0-29.9,adult Active [...] MG PO Every D ay At Bedtime 90 July 30, 2023 11:20am Hydrochlorothi azide Active 12.5 MG PO DAILY October 15, 2023 12:00am Gabapentin Active 100 MG PO TWICE A DAY A ug2023 3:01pm 100mg in am and 300mg at hs Duloxetine Active 60 MG PO BEDTIME 90 Septe mber 2023 10:58am take one tablet at bedtime. Meloxicam Active 15 MG PO DAILY 30 er 2023 4:11pm Immunizations Immunization Event Date Not Given Reason Dose Number Office Sweeper Lot Number Vaccine Information Statement (VIS) Detail [...] Interpretation Reference Range Result Comment Performing Site Sodium Level September 02, 2023 9:01am 139 mmol/L 137-145 [facility] [id number] [address] [place] [address] Potassium Level September 02, 2023 9:01am 4.1 mmol/L 3.4-5.0 [facility] [id number] [address] [place] [address]88 Chloride Level September 02, 2023 9:01am 104 mmol/L 98-107 [facility] [id number] [address] [place] [address] 59287 Carbon Dioxide Level September 02, 2023 9:01am 28 mmol/L 22-30 [facility] [id number] [address] [place] [address] 87686 Anion Gap September 02, 2023 9:01am 7 mmol/L 4-12 [facility] [id number] [address] [place] [address] 67857 Blood Urea Nitrogen September 02, 2023 9:01am 30 mg/dL Above high normal -20 [facility] [id number] [address] [place] [address] 88752 Creatinine September 02, 2023 9:01am 0.70 mg/dL 0.7-1.3 [facility] [id number] [address] [place] [address] 38160 Estimat Glomerular Filtration Rate September 02, 2023 9:01am > 60 >59 > OR = 60 ml/min/1.73 square metersThe MDRD formula used to calculate the eGFR result has not been validated in patients > 70 years of age. [facility] [id number] [address] [place] [address] Estimated Creatinine Clearance Calc September 02, 2023 9:01am Not Reportable [facility] [id number] [address] [place] [address] 82856 Glucose Level September 02, 2023 9:01am 106 mg/dL 65-110 [facility] [id number] [address] [place] [address] 81733 Calcium Level September 02, 2023 9:01am 9.4 mg/dL 8.4-10.2 [facility] [id number] [address] [place] [address] Magnesium Level September 02, 2023 9:01am 2.0 mg/dL 1.6-2.3 [facility] [id number] [address] [place] [address] 53940 Total Bilirubin September 02, 2023 9:01am 0.9 mg/dL 0.2-1.3 [facility] [id number] [address] [place] [address] 08829 Aspartate Amino Transf (AST/SGOT) September 02, 2023 9:01am 20 U/L 17-59 [facility] [id number] [address] [place] [address] 67446 Alanine Aminotransfer ase (ALT/SGPT) September 02, 2023 9:01am 15 U/L 6-50 [facility] [id number] [address] [place] [address] 53864 Total Creatine Kinase September 02, 2023 9:01am 81 U/L 55-170 [facility] [id number] [address] [place] [address] 24401 Total Protein September 02, 2023 9:01am 7.0 g/dL 6.3-8.2 [facility] [id number] [address] [place] [address] 88695 Albumin September 02, 2023 9:01am 4.6 g/dL 3.5-5.1 [facility] [id number] [address] [place] [address]34 Triglycerides Level September 02, 2023 9:01am 103 mg/dL <150 [facility] [id number] [address] [place] [address] 15266 Cholesterol Level September 02, 2023 9:01am 129 mg/dL 0-200 [facility] [id number] [address] [place] [address] 69631 LDL Cholesterol Direct September 02, 2023 9:01am 71 mg/dL <130 mg/dl [id number] 9 mg/dl Borderline High Risk >160 mg/dl High Risk [facility] [id number] [address] [place] [address] 25315 HDL Cholesterol Direct September 02, 2023 9:01am 45 mg/dL Expected Range > 35 mg/dl [facility] [id number] [address] [place] [address] 39521 Alkaline Phosphatase September 02, 2023 9:01am 63 U/L 38-126 [facility] [id number] [address] [place] [address] 17771 Prostate Specific Antigen September 02, 2023 9:01am 1.1 ng/mL <4.0 Office Sweeper: Kuli KuliMeth od: ImmunoassayPSA results determined by assays using different manufacturers or methods may not be comparable. [facility] [id number] [address] [place] [address] Thyroid Stimulating Hormone (TSH) September 02, 2023 9:01am 1.410 [iU]/mL 0.465-4.68 0 [facility] [id number] [address] [place] [address] 43022 Vital Signs Vital Reading Result Reference Range [...] 7:40am Heart Rate 60 /min 60-100 December 10, 2 024 7:40am Oxygen saturation by Pulse oximetry 97 % 90-100 December 11, 2023 7 :40am BP Systolic 138 mm[Hg] 100-140 December 10, 2 024 7:40am BP Diastolic 88 mm[Hg] 60-90 December 10, 024 7:40am BMI (Body Mass Index) 30.2 kg/m2 Octobe r 2023 7:40am Insurance Providers Guarantor Ming Nieves Address [address] [place] [phone] Contact Info. Home Phone: Payer Policy Id Coverage Id Subscriber's Name Subscriber Id Effective Date Expiration Date [place] [id number] Ming Nieves [id number] [place] [id number] Ming Nieves [id number] Self Pay Self N/A [id number] Ming Nieves [id number] Encounters Encounter Location(s) Arrival/Admit Date Discharge/Depart Date Provider(s) [facility]ed [facility] July 30, 2023 10:50am July 30, 2023 11:25am Kathryn Hunter PA-C Departed Physician/Provi albert Office Visit [facility] August 26, 2023 1:22pm August 26, 2023 1:38pm Harry Vyas MD Departed [facility] September 02, 2023 8:54am September 02, 2023 8:55am Kathryn Hunter PA-C Departed Physician/Provi albert Office Visit [facility] September 03, 2023 8:44am September 03, 2023 9:17am Kathryn Hunter PA-C Departed Physician/Provi albert Office Visit [facility] September 26, 2023 10:38am September 26, 2023 10:59am Mckenna Gaytan Departed Physician/Provi albert Office Visit [facility] October 08, 2023 9:12am October 08, 2023 9:33am Harry Vyas MD Departed Surgical Day Care [facility] October 23, 2023 1:23am October 23, 2023 2:40pm Harry Vyas MD Departed Physician/Provi albert Office Visit [facility] November 11, 2023 2:48pm November 11, 2023 3:11pm Juliet Peñaloza PA-C Departed Physician/Provi albert Office Visit [facility] December 11, 2023 8:10am December 11, 2023 8:59am Mckenna Gaytan Registered Clinical [facility] December 11, 2023 8:55am Mckenna Gaytna Recent Diagnosis Onset Date Anxiety BMI 29.0-29.9,adult GERD (gastroesophageal reflux disease) Hyperlipidemia Hypertension Insomnia Screening for prostate cancer Trigger finger of right hand Trigger finger of right hand Abnormal kidney function Hypertension Ganglion cyst Ganglion cyst Trigger finger of right hand Encounter for plastic surgery follow-up Pain of lower leg Mental Status Observation [...] acute Encounter for plastic surgery follow-up noneactive Pain of lower leg noneactive Plan of Treatment Author [facility] Authored September 04, 2023 7:03 am Has been off all BP meds sin [...] repeat BMP in one month Author Harry Johnsongavandana [facility] Authored August 26, 2023 1:39p m [...] a1 maxwell release Author Mckenna Gaytan [facility] Authored September 26, 2023 12: 47pm Trigger [...] this at his upcoming surgery Author Harry Johnsongavandana [facility] Authored October 08, 2023 9: 37am 58yo [...] time as R MFa1 maxwell release Author Kathryn Hunter [facility] Authored August 01, 2023 4:05p m Has [...] Will refer to plastic surgeon Author Juliet Bazzi [facility] Authored November 11, 2023 3:13pm 58yo male [...] Tests Test Name Ordered Date Scheduled Date White Blood Count December 11, 2023 8:59am Red Blood Count December 11, 2023 8:59am Hemoglobin December 11, 2023 8:59am Hematocrit December 11, 2023 8:59am Mean Corpuscular Volume December 11, 2023 8:59a m Mean Corpuscular Hemoglobin December 11, 2023 8 :59am Mean Corpuscular Hemoglobin Concent December 11, 2023 8:59am Red Cell Distribution Width December 11, 2023 8 :59am Platelet Count December 11, 2023 8:59am Mean Platelet Volume December 11, 2023 8:59am Nucleated Red Blood Cells % December 11, 2023 8 :59am Immature Granulocyte % (Auto) December 11, 2023 8:59am Neutrophils (%) (Auto) December 11, 2023 8:59am Lymphocytes (%) (Auto) December 11, 2023 8:59am Monocytes (%) (Auto) December 11, 2023 8:59am Eosinophils (%) (Auto) December 11, 2023 8:59am Basophils (%) (Auto) December 11, 2023 8:59am Nucleated RBC Absolute Count (auto) December 11, 2023 8:59am Absolute Immature Granulocyt e (auto December 11, 2023 8:59am Absolute Neutrophils (auto) December 11, 2023 8 :59am Lymphocytes # (Auto) December 11, 2023 8:59am Monocytes # (Auto) December 11, 2023 8:59am Eosinophils # (Auto) December 11, 2023 8:59am Basophils # (Auto) December 11, 2023 8:59am Sodium Level December 11, 2023 8:59am Potassium Level December 11, 2023 8:59am Chloride Level December 11, 2023 8:59am Carbon Dioxide Level December 11, 2023 8:59am Anion Gap December 11, 2023 8:59am Blood Urea Nitrogen December 11, 2023 8:59am Creatinine December 11, 2023 8:59am Estimat Glomerular Filtratio n Rate December 11, 2023 8:59am Estimated Creatinine Clearan ce Calc December 11, 2023 8:59am Glucose Level December 11, 2023 8:59am Calcium Level December 11, 2023 8:59am Total Creatine Kinase December 11, 2023 8:59am Triglycerides Level December 11, 2023 8:59am Cholesterol Level December 11, 2023 8:59am LDL Cholesterol Direct December 11, 2023 8:59am HDL Cholesterol Direct December 11, 2023 8:59am Vitamin B12 Level December 11, 2023 8:59am Folate December 11, 2023 8:59am Vitamin B6 Level December 11, 2023 8:59am Vitamin B12 and Folic Acid December 11, 2023 8: 37am December 11, 2023 8:59am Creatine Kinase December 11, 2023 8:37am Octobe r 2023 8:59am Vitamin B6 December 11, 2023 8:37am Octobe r 2023 8:59am Future Visits Future appointment information is unavailable Referrals to Other Providers Reason for Referral Referral Start Date Provider Provider Contact Information Provider Address M21.40 - Flat foot [pes planus] (acquired), unspecified foot,M79.576 - Pain in unspecified toe(s) December 11, 2023 Paul Mccarty Jr., DPM Work Phone: [phone] [facility] [address] M65.30 - Trigger finger, unspecified finger July 30, 2023 Harry Vyas MD Work Phone: [facility] [address] [facility] [address] Future Procedures Procedure Name Ordered Date Scheduled Date Basic Metabolic Panel December 11, 2023 8:38am December 11, 2023 8:59am Complete Blood Count with Diff December 10 8:37am December 11, 2023 8:59am Lipid Panel December 11, 2023 8:38am Octobe r 2023 8:59am Outpatient Surgery Discharge October 23, 2023 1 :32pm October 23, 2023 12:00am Intraoperative Tourniquet, Place October 22 1:02pm October 23, 2023 1:02pm Future Medications Future medication information is unavailable Patient Instructions Hypertension (AC) Anxiety (AC) Hypertension (AC) Goals Acute Goals Author Authored Date Pt will Experience Minimal A nxiety Patient will Demonstrate/Verbalize Minimal Anxiety Prior to Surgery 1. Motley Patient by Explaining Room & Equipment 2. Allow Patient to Verbalize and Answer Questions 3. Monitor Patient Comfort i.e. Provide Warm Blankets 4. Indicate Special Needs r/t Development Age 5. Provide Emotional Support and Reassuring Atmosphere 6. Describe Sequence of Events During Pre-Op Period 7. Confirm Written and Verbal Consent for Operative Procedure [facility] October 23, 2023 12:33pm Demonstrate/Verbalize Minima l Pain Pt will Demonstrate/Verbalize Minimal Pain to Surgical Intervention 1. Assess Location, Duration, and Intensity of Pain 2. Change Position as Allowed 3. Use Therapeutic Communication 4. Relay Complaints of Pain to Primary Nurse Veda [facility] October 23, 2023 2:42pm
--- OUTSIDE RECORDS SUMMARY | 2024-03-09 00:17 | XMS_ITS | Encounter Summary ---
Author Organization [facility] Address [address] [place] [address] Phone [email or web address] Care Team Providers Care Survey Cad Technician Name Role Phone Unavailable Primary Care Provider Unavailabl e Encounter Details Date Type Department Care Team (Late st Contact Info) Description 12/07/2021 12:40 PM CDT Immunization [address] [phone] Jena Crews RN [address] [place] [phone] Encounter for immunization (Primary Dx) Social [...]
--- OUTSIDE RECORDS SUMMARY | 2024-03-09 00:17 | XMS_ITS | Encounter Summary ---
Author Organization [facility] Address [address] [place] [address]. [place] [address] [place] [address] Care Team Providers Care Leather Stretcher Name Role Phone Unavailable Primary Care Provider Unavailabl e Encounter Details Date Type Department Care Team (Late st Contact Info) Description 03/28/[address] [facility] [place], [place] [id number] Nathaniel Roque MD [address] [place] [id number] Social History Tobacco Use Types Packs/Day Years [...]
--- OUTSIDE RECORDS SUMMARY | 2024-03-09 00:17 | XMS_ITS | Clinical Summary ---
Author Organization [facility] Address [address] [place] [address] Phone [email or web address] Care Team Providers Care Tip Mender Name Role Phone Unavailable Primary Care Provider [...]
--- OUTSIDE RECORDS SUMMARY | 2024-03-09 00:17 | XMS_ITS | Clinical Summary ---
Author Organization [facility] Address [address] [place] [address]. [place] [address] [place] [address] Care Team Providers Care Gang Boss Name Role Phone Unavailable Primary Care Provider [...]
--- OUTSIDE RECORDS SUMMARY | 2024-03-09 00:17 | XMS_ITS | Encounter Summary ---
Author Organization [facility] Address [address] [place] [address]. [place], [place] [address] [place] [address] Care Team Providers Care Conductor Symphonic Orchestra Name Role Phone Unavailable Primary Care Provider Unavailabl e Encounter Details Date Type Department Care Team (Late st Contact Info) Description 04/16/1995 Abstract [facility] [place] [place], [place] [address] , Generic Conversion, Social History Tobacco Use [...]
--- OUTSIDE RECORDS SUMMARY | 2024-03-09 00:17 | XMS_ITS | Encounter Summary ---
Author Organization [facility] Address [address] [place] [address]. [place], [place] [address] [place] [address] Care Team Providers Care Die Stamping Press Operator Name Role Phone Unavailable Primary Care Provider Unavailabl e Encounter Details Date Type Department Care Team (Late st Contact Info) Description 08/31/1996 Abstract [facility] [place], [place] [id number] , Generic Conversion, Social History Tobacco Use [...]
== END 2024-03-02 19:23 | disposition home or self-care (01) ==
PROVIDERS: Emergency Provider Student in an Organized Health Care Education/Training Program; PCP Family Medicine
DX: M54.42 Lumbago with sciatica, left side (principal); M47.816 Spondylosis without myelopathy or radiculopathy, lumbar region; M47.812 Spondylosis without myelopathy or radiculopathy, cervical region; S09.90XA Unspecified injury of head, initial encounter; K58.9 Irritable bowel syndrome, unspecified; G89.29 Other chronic pain; Z87.442 Personal history of urinary calculi; Z87.891 Personal history of nicotine dependence; W01.0XXA Fall on same level from slipping, tripping and stumbling without subsequent striking against object, initial encounter
CPT/HCPCS: 70450; 72125; 72131; 81001; 96372; 99284; A9270; J1885

== ENCOUNTER 2024-11-30 10:43 | Outpatient (CLI) | payer OTHER, SELFPAY ==
--- NOTE | ~2024-11-30 | XR_ITS ---
EXAMINATION: XR chest 2V, 11/30/2024 13:02 CDT HISTORY: Z01.818 - Encounter for other preprocedural examination COMPARISON: No comparisons available. Technique: 2 views obtained. Findings: The lungs are clear, no effusion. No pneumothorax. Heart is normal size. Mediastinal and hilar contours are within normal limits. Bony thorax no acute abnormality. Impression: No acute cardiopulmonary abnormality. Reviewed, dictated and finalized at location P. Impression: No acute cardiopulmonary abnormality.
--- NOTE | 2024-11-30 11:01 | ECG_ITS ---
Test Date: 2024-11-30 11:15:50 Measurements Intervals [place] Rate: 54 P: 30 [place]: 191 QRS: -34 QRSD: 118 T: 37 QT: 425 QTc: 404 Interpretive Statements SINUS BRADYCARDIA LEFT AXIS DEVIATION MINIMAL Q WAVES- HIGH LATERAL LEADS BASELINE ARTIFACT- I, II, AVR, AVL, AVF, V1 BORDERLINE ECG No previous ECG available for comparison Electronically Signed On 11-30-2024 11:40:09 CDT by Yohan Rodriguez D.O.
[2024-11-30 11:07] LABS: Hematocrit 45.6 % (42.0-52.0); Hemoglobin 15.3 g/dL (14.0-18.0); Mean Corpuscular HGB Conc 33.6 g/dl (32-36); Mean Corpuscular Hemoglobin 30.5 pg (26-34); Mean Corpuscular Volume 90.8 fl (80-100); Platelet Count Result 259 k/mm3 (150-375); Red Blood Count 5.02 M/mm3 (4.6-6.20); White Blood Count 7.3 K/mm3 (4.5-10.0)
[2024-11-30 11:33] LABS: Alanine Aminotransferase 18 U/L (6-50); Albumin Level 4.3 g/dL (3.5-5.1); Alkaline Phosphatase 62 U/L (38-126); Anion Gap 8 mmol/L (4-12); Aspartate Amino Transferase 20 U/L (17-59); Bilirubin,Total 0.4 mg/dL (0.2-1.3); Blood Urea Nitrogen 21 mg/dL (9-20); Calcium 8.7 mg/dL (8.4-10.2); Carbon Dioxide 24 mmol/L (22-30); Chloride 106 mmol/L (98-107); Cholesterol 117 mg/dL (0-200); Estimated Glomerular Filt Rate > 60; Glucose 92 mg/dL (65-110); HDL Direct 38 mg/dL; Potassium 4.4 mmol/L (3.4-5.0); Sodium 138 mmol/L (137-145); Total Protein 7.0 g/dL (6.3-8.2); Triglycerides 113 mg/dL (<150)
[2024-11-30 12:09] LABS: Prostate Specific Antigen 1.4 ng/mL (< OR = 4.0); Thyroid Stimulating Hormone 1.410 uIU/mL (0.465-4.680)
--- OUTSIDE RECORDS SUMMARY | 2024-11-30 12:12 | XMS_ITS | Clinical Summary ---
Author Organization [facility] Address [address] [place] [address] Care Team Providers Care Patient Support Partner Name Role Phone Unavailable Primary Care Provider [...] Td Vaccines ( 1 - Tdap) 05/22/1982 Pneumococcal Vaccine: 50+ Ye ars (1 of 1 - PCV) 05/22/2013 Zoster Vaccines (1 of 2) 05/22/2013 COVID-19 Vaccine (1 - 2023-2 5 season) 2024 RSV Immunization or 60+ Years (1 - 1-dose 75+ series) 05/22/2038 Meningococcal B Vaccine Aged Out No l onger eligible based on patient's age to complete this topic Meningococcal Vaccine Aged Out No santiago masood eligible based on patient's age to complete this topic RSV Immunizations Under 20 Months Aged Out No longer eligible based on patient's age to complete this topic
--- OUTSIDE RECORDS SUMMARY | 2024-11-30 12:12 | XMS_ITS | Clinical Summary ---
Author Organization [facility] Address [address] [place] [address] Phone [email or web address] Care Team Providers Care Straightedge Man Name Role Phone Unavailable Primary Care Provider Unavailabl e Immunizations Immunization Administration Dates Next Due Influenza, (Afluria Fluarix [...] Health Maintenance Due Date Last Done Comments CT Colonography 1963 Colonoscopy 1963 Colorectal Cancer Screening Combo 1963 DNA Cologuard 1963 FIT or FOBT Test 1963 HIV Screening 1963 Hepatitis C Screening 1963 Sigmoidoscopy 1963 Annual Preventive Exam 05/22/1981 Hep B Infection Screening - Triple Screen 05/22/1981 Tetanus Diphtheria and Pertu ssis Immunization (1 - Tdap) 05/22/1982 Pneumococcal: 50+ Years (1 o f 1 - PCV) 05/22/2013 Zoster Immunization (1 of 2) 05/22/2013 Covid-19 Immunization (1 - 2 25 season) 2024 Influenza Immunization (#1) 2024 12/07/2021 HIB Immunization Aged Out No longer [...]
== END 2024-11-30 10:44 | disposition home or self-care (01) ==
PROVIDERS: PCP Family Medicine; Visit Provider Nurse Practitioner Family
DX: Z01.818 Encounter for other preprocedural examination (principal); Z12.5 Encounter for screening for malignant neoplasm of prostate; I10 Essential (primary) hypertension; E78.5 Hyperlipidemia, unspecified; G89.29 Other chronic pain
CPT/HCPCS: 36415; 71046; 80053; 80061; 84153; 84443; 85027; 93005; G0103